=== PATIENT | male | born 1935 | race Caucasian/White ===

== ENCOUNTER → 2019-04-27 | Outpatient (CLI) | payer MEDICARE ==
--- NOTE | 2019-04-27 13:13 | Diagnostic Imaging Report ---
INDICATION: Left-sided arm and chest weakness x1 week. TECHNIQUE: Multiple contiguous axial images were obtained through the brain without the use of intravenous contrast. Auto Exposure Controls were utilized during the CT exam to meet ALARA standards for radiation dose reduction. COMPARISON: There is no prior study for comparison. FINDINGS: There are no extra-axial fluid collections. No intracranial hemorrhage. No intracranial mass or mass effect. No midline shift. The ventricles are normal in size and position. There is a small lacunar infarct in the right thalamus of indeterminate age. There are no other focal parenchymal abnormalities in the brain. Calvarial windows appear unremarkable. IMPRESSION: No acute hemorrhage or mass effect. 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 Consider MRI if clinically warranted. Dictated by: Dictated on workstation # [id number]
[2019-04-27 14:03] LABS: ALANINE AMINOTRANSFERASE 24 U/L (0-55); ALBUMIN 4.1 GM/DL (3.2-4.5); ALKALINE PHOSPHATASE 75 U/L (40-136); BILIRUBIN,TOTAL 0.5 MG/DL (0.1-1.0); BUN/CREATININE RATIO 16; CALCIUM 9.2 MG/DL (8.5-10.1); CARBON DIOXIDE 23 MMOL/L (21-32); CHLORIDE 108 MMOL/L (98-107); CREATININE SERUM 0.93 MG/DL (0.60-1.30); GFR ESTIMATED > 60; GLUCOSE 132 MG/DL (70-105); POTASSIUM 4.1 MMOL/L (3.6-5.0); SODIUM 143 MMOL/L (135-145); TOTAL PROTEIN 6.8 GM/DL (6.4-8.2)
== END ==
LOC: RAD 12:51
PROVIDERS: ATTEND Pediatrics
DX: I63.81 Other cerebral infarction due to occlusion or stenosis of small artery (principal); E11.9 Type 2 diabetes mellitus without complications
CPT/HCPCS: 36415; 70450; 80053; 83036; 83874; 84484

== ENCOUNTER → 2019-05-08 | Outpatient (CLI) | payer MEDICARE, BC ==
[~2019-05-08] MED LIST: GADOBUTROL 10 MMOL/10 ML (GADAVIST) VIAL IV ONE
--- NOTE | 2019-05-08 10:20 | Diagnostic Imaging Report ---
PROCEDURE: MR imaging of the brain with and without contrast. TECHNIQUE: Multiplanar, multisequence MR imaging of the brain was performed with and without contrast. INDICATION: Bilateral hand numbness. COMPARISON: Correlation is made with head CT from 04/27/2019. FINDINGS: The ventricles and sulci are appropriate for the patient's age. Mild periventricular white matter changes are noted consistent with senescent change. There is no sulcal effacement or midline shift. No diffusion restriction is identified to suggest acute ischemia. The normal expected flow voids within the carotid siphons are seen. No acute intra-axial or extra-axial hemorrhage is detected. No abnormal enhancement following contrast administration is identified. The corpus callosum is unremarkable. The sella and parasellar structures are unremarkable. IMPRESSION: Senescent changes. No acute intracranial process is detected. Dictated by: Dictated on workstation # [id number]
== END ==
LOC: RAD 08:55
PROVIDERS: ATTEND Pediatrics
DX: R29.818 Other symptoms and signs involving the nervous system (principal); R93.0 Abnormal findings on diagnostic imaging of skull and head, not elsewhere classified; R54 Age-related physical debility; R20.0 Anesthesia of skin
CPT/HCPCS: 70553

== ENCOUNTER → 2019-07-01 | Outpatient (CLI) | payer OTHER ==
--- NOTE | 2019-07-01 13:15 | Diagnostic Imaging Report ---
INDICATION: Chest wall pain. TECHNIQUE: Two view chest 12:03 p.m. CORRELATION STUDY: None. FINDINGS: Heart size is mildly enlarged. Tortuous course of the thoracic aorta. Vasculature overall is within normal limits. The lungs are clear with no consolidating infiltrate. There is no significant pleural effusion or pneumothorax. Degenerative changes of the thoracic spine. There are multifocal bridging osteophytes present. Various degrees of disc space narrowing. IMPRESSION: 1. Negative for acute abnormality of the chest. Cardiac enlargement without failure. Dictated by: Dictated on workstation # [id number]
--- NOTE | 2019-07-01 13:19 | Diagnostic Imaging Report ---
INDICATION: Left shoulder pain, no known injury. TECHNIQUE: Three views of the left shoulder. CORRELATION STUDY: None. FINDINGS: There is no acute fracture or dislocation. There is mild osteophyte formation about the inferior aspect of the bony glenoid. Glenohumeral joint is otherwise maintained. There is also hypertrophic spurring about the acromioclavicular joint. There does appear to be perhaps mild soft tissue prominence over the left shoulder, nonspecific. Underlying effusion would be difficult to exclude. IMPRESSION: 1. Negative for acute bony abnormality about the shoulder. Mild to moderately advanced degenerative changes about the left shoulder. Underlying joint effusion would be difficult to exclude. Dictated by: Dictated on workstation # [id number]
== END ==
LOC: RAD FS 11:39
DX: I51.7 Cardiomegaly (principal); M19.012 Primary osteoarthritis, left shoulder
CPT/HCPCS: 71046; 73030

== ENCOUNTER 2020-02-18 12:08 | Observation (INO) | payer MEDICARE ==
[~2020-02-18] VITALS: Ht 182 cm; Wt 96.6 kg
--- NOTE | 2020-02-18 12:29 | ED Cardiac General ---
History of Present Illness General Stated Complaint: LOW BP; LOW HR Source: patient Exam Limitations: no limitations History of Present Illness Date Seen by Provider: Feb 18, 2020 Time Seen by Provider: 12:20 Initial Comments 84-year-old male presents ambulatory to the ER with complaint of feeling weak for the last 1 week. Denies any chest pain, but is having shortness of air with light exertion. Denies history of heart or lung problems. Denies recent illness, fever or chills. Denies weight loss or loss of appetite. Denies any abdominal pain or swelling of the extremities. Allergies and Home Medications Allergies Coded Allergies: No Known Drug Allergies (Unverified , 05/08/19) Home Medications Lisinopril 10 Mg Tablet, 10 MG PO DAILY, (Reported) Patient Home Medication List Home Medication List Reviewed: Yes Review of Systems Review of Systems Constitutional: No chills, No diaphoresis, No fever; weakness EENTM: No Symptoms Reported Respiratory: Denies Shortness of Air; SOA With Exertion Cardiovascular: Denies Chest Pain, Denies Edema; Lightheadedness; Denies Palpitations, Denies Syncope Gastrointestinal: Denies Abdominal Pain, Denies Nausea, Denies Poor Appetite Musculoskeletal: No back pain, No joint pain Skin: No change in color, No change in hair/nails Psychiatric/Neurological: Denies Headache, Denies Numbness, Denies Paresthesia; Weakness Past Qmyvnwg-Dlkxja-Bfmztu Hx Past Med/Social Hx: Reviewed Nursing Past Med/Soc Hx Patient Social History Recent Foreign Travel: No Contact w/Someone Who Travel: No Physical Exam Vital Signs Vital Signs - First Documented 02/18/20 12:10 Temp 36.1 Pulse 38 Resp 16 B/P (MAP) 218/89 (132) Pulse Ox 95 O2 Delivery Room Air Capillary Refill : Height, Weight, BMI Height: '" Weight: lbs. oz. kg; BMI Method: General Appearance: No Apparent Distress, WD/WN HEENT: TMs Normal, Normal ENT Inspection Neck: Full Range of Motion, Non Tender, Supple Respiratory: Lungs Clear, Normal Breath Sounds, No Accessory Muscle Use, No Respiratory Distress Cardiovascular: No Edema, No Gallop, No JVD, No Murmur, Normal Peripheral Pulses, Bradycardia Gastrointestinal: Normal Bowel Sounds, Non Tender Extremity: Normal Capillary Refill, Normal Inspection, Normal Range of Motion, Non Tender, No Calf Tenderness Neurologic/Psychiatric: Alert, Oriented x3, No Motor/Sensory Deficits, Normal Mood/Affect Skin: Normal Color, Warm/Dry Progress/Results/Core Measures Results/Orders Lab Results Laboratory Tests Test 02/18/20 12:25 Range/Units White Blood Count 8.3 4.3-11.0 10^3/uL Red Blood Count 4.84 4.35-5.85 10^6/uL Hemoglobin 15.3 13.3-17.7 G/DL Hematocrit 45 40-54 % Mean Corpuscular Volume 92 80-99 FL Mean Corpuscular Hemoglobin 32 25-34 PG Mean Corpuscular Hemoglobin Concent 34 32-36 G/DL Red Cell Distribution Width 14.3 10.0-14.5 % Platelet Count 180 130-400 10^3/uL Mean Platelet Volume 10.9 H 7.4-10.4 FL Immature Granulocyte % (Auto) 0 % Neutrophils (%) (Auto) 67 42-75 % Lymphocytes (%) (Auto) 20 12-44 % Monocytes (%) (Auto) 9 0-12 % Eosinophils (%) (Auto) 3 0-10 % Basophils (%) (Auto) 1 0-10 % Neutrophils # (Auto) 5.6 1.8-7.8 X 10^3 Lymphocytes # (Auto) 1.7 1.0-4.0 X 10^3 Monocytes # (Auto) 0.8 0.0-1.0 X 10^3 Eosinophils # (Auto) 0.3 0.0-0.3 10^3/uL Basophils # (Auto) 0.1 0.0-0.1 10^3/uL Immature Granulocyte # (Auto) 0.0 0.0-0.1 10^3/uL Sodium Level 142 135-145 MMOL/L Potassium Level 4.2 3.6-5.0 MMOL/L Chloride Level 110 H 98-107 MMOL/L Carbon Dioxide Level 22 21-32 MMOL/L Anion Gap 10 5-14 MMOL/L Blood Urea Nitrogen 20 H 7-18 MG/DL Creatinine 0.97 0.60-1.30 MG/DL Estimat Glomerular Filtration Rate > 60 BUN/Creatinine Ratio 21 Glucose Level 150 H 70-105 MG/DL Calcium Level 8.9 8.5-10.1 MG/DL Corrected Calcium 9.0 8.5-10.1 MG/DL Total Bilirubin 0.8 0.1-1.0 MG/DL Aspartate Amino Transf (AST/SGOT) 41 H 5-34 U/L Alanine Aminotransferase (ALT/SGPT) 55 0-55 U/L Alkaline Phosphatase 79 40-136 U/L Troponin I < 0.30 <0.30 NG/ML Total Protein 6.1 L 6.4-8.2 GM/DL Albumin 3.9 3.2-4.5 GM/DL My Orders Orders - KANU GALICIA DO Cbc With Automated Diff (02/18/20 12:19) Comprehensive Metabolic Panel (02/18/20 12:19) Troponin I Fs (02/18/20 12:19) Ed Iv/Invasive Line Start (02/18/20 12:19) Ekg Tracing (02/18/20 12:19) Chest 1 View Ap/Pa Only (02/18/20 12:19) Vital Signs/I&O 02/18/20 12:10 Temp 36.1 Pulse 38 Resp 16 B/P (MAP) 218/89 (132) Pulse Ox 95 O2 Delivery Room Air Progress Progress Note : Progress Note Heart rate remained stable in the mid to upper 30s for his entire ER stay. Patient remained asymptomatic at rest. Denied any chest pain or shortness of air. Normal labs including Troponin. Only Rx medication is Lisinopril 10mg. He does take an 81mg ASA daily. No significant PMHX, active and functional 84 y/o male. 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 Initial ECG Impression Time: 12:30 Initial ECG Rate: 39 Initial ECG Rhythm: S.Jose Initial ECG Impression: Sinus Bradycardia, 2nd Degree AV Block Initial ECG Comparisson: No Previous ECG Available Departure Communication (Admissions) Time/Spoke to Admitting Phy: 12:[address] Stewart who accepts for transfer to [facility] Time/Spoke to Consulting Phy: 12:[address] Henry who advised admitting to Hospitalist and he will consult on pt on arrival. Impression Primary Impression: Bradycardia Disposition: ADMITTED INPATIENT Condition: Stable Admissions Decision to Admit Reason: Admit from ER (General) Decision to Admit/Date: Feb 18, 2020 Time/Decision to Admit Time: 12:27 Departure-Patient Inst. Referrals: CANDE PARRA MD (PCP/Family) Primary Care Physician KANU GALICIA DO Feb 18, 2020 12:29
--- NOTE | 2020-02-18 12:30 | NUR ---
PT'S UPDATED IN THE WAITING ROOM. STATES HER DAUGHTER WILL BE HERE IN ABOUT AND HOUR.
[2020-02-18] MEDS ORDERED: LISI10TA2 PO (12:34)
[2020-02-18 12:36] LABS: BASOPHILS # (AUTO) 0.1 10^3/uL (0.0-0.1); BASOPHILS % (AUTO) 1 % (0-10); EOSINOPHILS # (AUTO) 0.3 10^3/uL (0.0-0.3); EOSINOPHILS % (AUTO) 3 % (0-10); HEMATOCRIT 45 % (40-54); HEMOGLOBIN 15.3 G/DL (13.3-17.7); LYMPHOCYTES # (AUTO) 1.7 X 10^3 (1.0-4.0); LYMPHOCYTES % (AUTO) 20 % (12-44); MEAN CORPUSCULAR HEMOGLOBIN 32 PG (25-34); MEAN CORPUSCULAR HGB CONC 34 G/DL (32-36); MEAN CORPUSCULAR VOLUME 92 FL (80-99); MEAN PLATELET VOLUME 10.9 FL (7.4-10.4); MONOCYTES # (AUTO) 0.8 X 10^3 (0.0-1.0); MONOCYTES % (AUTO) 9 % (0-12); NEUTROPHILS # (AUTO) 5.6 X 10^3 (1.8-7.8); NEUTROPHILS % (AUTO) 67 % (42-75); PLATELET COUNT 180 10^3/uL (130-400); WHITE BLOOD COUNT 8.3 10^3/uL (4.3-11.0)
--- NOTE | 2020-02-18 12:41 | NUR ---
DICTAPHONE OPERATOR CONTACTED FOR A BED
--- NOTE | 2020-02-18 12:46 | NUR ---
DR TALKING TO AT THIS TIME.
[2020-02-18 12:51] LABS: ALANINE AMINOTRANSFERASE 55 U/L (0-55); ALBUMIN 3.9 GM/DL (3.2-4.5); ALKALINE PHOSPHATASE 79 U/L (40-136); BILIRUBIN,TOTAL 0.8 MG/DL (0.1-1.0); BUN/CREATININE RATIO 21; CALCIUM 8.9 MG/DL (8.5-10.1); CARBON DIOXIDE 22 MMOL/L (21-32); CHLORIDE 110 MMOL/L (98-107); CREATININE SERUM 0.97 MG/DL (0.60-1.30); GFR ESTIMATED > 60; GLUCOSE 150 MG/DL (70-105); POTASSIUM 4.2 MMOL/L (3.6-5.0); SODIUM 142 MMOL/L (135-145); TOTAL PROTEIN 6.1 GM/DL (6.4-8.2)
--- NOTE | 2020-02-18 12:51 | Diagnostic Imaging Report ---
INDICATION: Bradycardia and hypotension. TIME OF EXAM: 12:34 p.m. COMPARISON: Correlation is made with prior chest from 07/01/2019. FINDINGS: Heart size is normal. There appear to be patchy bibasilar infiltrates present. There may be trace bilateral effusions as well. Mid and upper lung paiz are clear. There is no pneumothorax. IMPRESSION: Patchy bibasilar pulmonary infiltrates and trace bilateral pleural effusions. Dictated by: Dictated on workstation # [id number]
--- NOTE | 2020-02-18 14:19 | History & Physical-Hospitalist ---
History of Present Illness HPI/Chief Complaint Pt is an 84yoCm with a PMH of HTN who presented to the ER due to bradycardia. He states for the past two weeks he's been more out of breath and is very winded when he comes up his stairs from the basement. He tried to check his BP and it was reading as an error but it read his pulse at 30. [facility] He had sinus bradycardia in the 30s there as well. He has not been on any rate lower medication and only takes lisinopril. Otherwise he says he's a diet controlled diabetic and he believes his last a1c was 7.0. He has not other complaints. He denies any fever, chills, sick contacts. Source: patient Date Seen 02/18/20 Time Seen by a Provider: 15:30 Attending Physician Pauline Stewart MD PCP Teja Solorio MD Referring Physician Date of Admission Feb 18, 2020 at 14:06 Home Medications & Allergies Home Medications Reviewed patient Home Medication Reconciliation performed by pharmacy medication reconciliations biological science technician and/or nursing. Patients Allergies have been reviewed. Allergies Allergies Coded Allergies No Known Drug Allergies (Unverified05/08/19) Past Ljkosdr-Bycemt-Blptya Hx Past Med/Social Hx: Reviewed Nursing Past Med/Soc Hx Patient Social History Alcohol Use: Denies Use Recreational Drug Use: No Smoking Status: Never a Smoker Recent Foreign Travel: No Contact w/other who traveled: No Recent Infectious Disease Expo: No Immunizations Up To Date Date of Pneumonia Vaccine: Feb 17, 2019 Date of Influenza Vaccine: Jan 28, 2020 Seasonal Allergies Seasonal Allergies: No Past Medical History Surgeries: Abdominal Cardiac: Hypertension Family History Reviewed Nursing Family Hx No Pertinent Family Hx Review of Systems Constitutional: No chills, No fever; malaise Respiratory: No cough; dyspnea on exertion, short of breath Cardiovascular: see HPI; No chest pain, No edema, No Hx of Intervention, No palpitations Gastrointestinal: no symptoms reported Musculoskeletal: no symptoms reported Skin: no symptoms reported Psychiatric/Neurological: No Symptoms Reported Physical Exam Physical Exam Vital Signs Vital Signs - First Documented 02/18/20 12:10 Temp 36.1 Pulse 38 Resp 16 B/P (MAP) 218/89 (132) Pulse Ox 95 O2 Delivery Room Air Capillary Refill : Less Than 3 Seconds Height, Weight, BMI Height: '" Weight: lbs. oz. kg; 29.00 BMI Method: General Appearance: No Apparent Distress, WD/WN HEENT: PERRL/EOMI, Moist Mucous Membranes; No Scleral Icterus (L), No Scleral Icterus (R) Neck: Normal Inspection, Supple Respiratory: Lungs Clear, No Accessory Muscle Use, No Respiratory Distress Cardiovascular: No Edema, No JVD, No Murmur, Bradycardia Gastrointestinal: Normal Bowel Sounds, Non Tender, Soft Extremity: Normal Capillary Refill, No Calf Tenderness, No Pedal Edema Neurologic/Psychiatric: Alert, Oriented x3, Normal Mood/Affect Skin: Normal Color, Warm/Dry Results Results/Procedures Labs Laboratory Tests 02/19/20 02:53 Patient resulted labs reviewed. Imaging: Reviewed Imaging Report [facility] [place], [place] NAME: MAIA RIVER [employer] REC#: [id number] PT STATUS: REG ER : 1935 PHYSICIAN: KANU GALICIA DO ADMIT DATE: 02/18/20/ER FS Draft Date of Exam:02/18/20 CHEST 1 VIEW AP/PA ONLY INDICATION: Bradycardia and hypotension. TIME OF EXAM: 12:34 p.m. COMPARISON: Correlation is made with prior chest from 07/01/2019. FINDINGS: Heart size is normal. There appear to be patchy bibasilar infiltrates present. There may be trace bilateral effusions as well. Mid and upper lung paiz are clear. There is no pneumothorax. IMPRESSION: Patchy bibasilar pulmonary infiltrates and trace bilateral pleural effusions. 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
[2020-02-18] MEDS ORDERED: MIDAZOLAM 5 MG/5 ML (VERSED) VIAL ONE (14:36)
[2020-02-18] MEDS ORDERED: ceFAZolin INJECTION 1,000 MG ONE ×2 (14:36→22:11)
[2020-02-18] MEDS ORDERED: LIDOCAINE 1% INJ 20 ML 20 ML VIAL ONE (14:36)
[2020-02-18] MEDS ORDERED: fentaNYL INJECTION 100 MCG/2 ML AMP ONE (14:36)
[2020-02-18] MEDS ORDERED: HEParin (CATH LAB) 1,000 ML IV ONE (14:36)
[2020-02-18] MEDS ORDERED: NS IV 1000 ML 1,000 ML ONE (14:36)
[2020-02-18] MEDS ORDERED: ASPI-999 PO (15:28)
[2020-02-18] MEDS ORDERED: BACITRACIN INJECTION 50,000 UNIT, SODIUM CHLORIDE 0.9% IRRIGATIO 500 ML IR ONE ×2 (15:45)
--- NOTE | 2020-02-18 15:52 | NUR ---
1545 PT TO [employer] SECUR[employer] ARCHITECT VIA BED ACCOMPANIED BY [employer] SECURITY ARCHITECT STAFF.
--- NOTE | 2020-02-18 16:04 | Cardiac Procedure Note-CS/ASA ---
Pre-Procedure Note Pre-Op Procedure Note H&P Reviewed The H&P was reviewed, patient examined and no changes noted. Date H&P Reviewed: Feb 18, 2020 Time H&P Reviewed: 16:04 Conscious Sedation Pre-Proced Time 16:04 ASA Score 3 For ASA 3 and 4: Consider anesthesia and medical clearance. Also, for patients with a history of failed moderate sedation consider anesthesia. Airway Lungs Heart ASA score ASA 1: a normal healthy patient ASA 2: a patient with a mild systemic disease (mid diabetes, controlled hypertension, obesity x ASA 3: a patient with a severe systemic disease that limits activity (angina, COPD, prior Myocardial infarction) ASA 4: a patient with an incapacitating disease that is a constant threat to life (CHF, renal failure) ASA 5: a moribund patient not expected to survive 24 hrs. (ruptured aneurysm) ASA 6: a declared brain- patient whose organs are being harvested. For emergent operations, add the letter E after the classification Mallampati Classification Grade 3 Sedation Plan Analgesia, Amnesia, Plan communicated to team members, Discussed options with patient/fam, Discussed risks with patient/fam The patient is an appropriate candidate to undergo the planned procedure, sedation, and anesthesia. The patient immediately re-assessed prior to indication. OWEN BOYER MD Feb 18, 2020 16:04
--- NOTE | 2020-02-18 16:04 | Consultation-Cardiology ---
HPI-Cardiology Cardiology Consultation Date of Consultation 02/18/20 Date of Admission Time Seen by Provider: 15:00 Indication: bradycardia HPI 84 years old gentleman With history of hypertension started on lisinopril recently. Has been complaining of fatigue and loss of energy for the last week to 2 weeks. No syncope was reported but has been playing of feeling tired and having no energy had elevated blood pressure. Came into the emergency room and noted to be in complete heart block with a heart rate 30-35. Denied any chest pain. No shortness of breath. No syncope. Home Medications & Allergies Allergies: Coded Allergies: No Known Drug Allergies (Unverified , 05/08/19) Home Medication List Reviewed: Yes MME-Idbbbw-Nhcxjw Hx Patient Social History Marital Status: Alcohol Use: Denies Use Recreational Drug Use: No Smoking Status: Never a Smoker Recent Foreign Travel: No Recent Infectious Disease Expo: No Immunizations Up To Date Date of Pneumonia Vaccine: Feb 17, 2019 Date of Influenza Vaccine: Jan 28, 2020 Past Medical History Hypertension Family Medical History Significant Family History: No Pertinent Family Hx Family Medical Hx Family history of atrial fibrillation and pacemaker Review of Systems-General Review of Systems Constitutional: No chills, No fever; malaise, weakness EENTM: see HPI, no symptoms reported Respiratory: see HPI; No cough; dyspnea on exertion, short of breath Cardiovascular: see HPI; No chest pain, No edema, No Hx of Intervention, No palpitations Gastrointestinal: no symptoms reported, see HPI Genitourinary: no symptoms reported, see HPI Musculoskeletal: no symptoms reported, see HPI Skin: no symptoms reported, see HPI Psychiatric/Neurological: No Symptoms Reported, See HPI Reviewed Test Results Reviewed Test Results Lab Laboratory Tests Test 02/18/20 12:25 Range/Units White Blood Count 8.3 4.3-11.0 10^3/uL Red Blood Count 4.84 4.35-5.85 10^6/uL Hemoglobin 15.3 13.3-17.7 G/DL Hematocrit 45 40-54 % Mean Corpuscular Volume 92 80-99 FL Mean Corpuscular Hemoglobin 32 25-34 PG Mean Corpuscular Hemoglobin Concent 34 32-36 G/DL Red Cell Distribution Width 14.3 10.0-14.5 % Platelet Count 180 130-400 10^3/uL Mean Platelet Volume 10.9 H 7.4-10.4 FL Immature Granulocyte % (Auto) 0 % Neutrophils (%) (Auto) 67 42-75 % Lymphocytes (%) (Auto) 20 12-44 % Monocytes (%) (Auto) 9 0-12 % Eosinophils (%) (Auto) 3 0-10 % Basophils (%) (Auto) 1 0-10 % Neutrophils # (Auto) 5.6 1.8-7.8 X 10^3 Lymphocytes # (Auto) 1.7 1.0-4.0 X 10^3 Monocytes # (Auto) 0.8 0.0-1.0 X 10^3 Eosinophils # (Auto) 0.3 0.0-0.3 10^3/uL Basophils # (Auto) 0.1 0.0-0.1 10^3/uL Immature Granulocyte # (Auto) 0.0 0.0-0.1 10^3/uL Sodium Level 142 135-145 MMOL/L Potassium Level 4.2 3.6-5.0 MMOL/L Chloride Level 110 H 98-107 MMOL/L Carbon Dioxide Level 22 21-32 MMOL/L Anion Gap 10 5-14 MMOL/L Blood Urea Nitrogen 20 H 7-18 MG/DL Creatinine 0.97 0.60-1.30 MG/DL Estimat Glomerular Filtration Rate > 60 BUN/Creatinine Ratio 21 Glucose Level 150 H 70-105 MG/DL Calcium Level 8.9 8.5-10.1 MG/DL Corrected Calcium 9.0 8.5-10.1 MG/DL Total Bilirubin 0.8 0.1-1.0 MG/DL Aspartate Amino Transf (AST/SGOT) 41 H 5-34 U/L Alanine Aminotransferase (ALT/SGPT) 55 0-55 U/L Alkaline Phosphatase 79 40-136 U/L Troponin I < 0.30 <0.30 NG/ML Total Protein 6.1 L 6.4-8.2 GM/DL Albumin 3.9 3.2-4.5 GM/DL Physical Exam Physical Exam Vital Signs Vital Signs - First Documented 02/18/20 12:10 Temp 36.1 Pulse 38 Resp 16 B/P (MAP) 218/89 (132) Pulse Ox 95 O2 Delivery Room Air Capillary Refill : Less Than 3 Seconds Height, Weight, BMI Height: '" Weight: lbs. oz. kg; 29.00 BMI Method: General Appearance: No Apparent Distress, WD/WN HEENT: PERRL/EOMI, Moist Mucous Membranes; No Scleral Icterus (L), No Scleral Icterus (R) Neck: Normal Inspection, Supple Respiratory: Lungs Clear, No Accessory Muscle Use, No Respiratory Distress Cardiovascular: No Edema, No JVD, No Murmur, Bradycardia Gastrointestinal: Normal Bowel Sounds, Non Tender, Soft Extremity: Normal Capillary Refill, No Calf Tenderness, No Pedal Edema Neurologic/Psychiatric: Alert, Oriented x3, Normal Mood/Affect Skin: Normal Color, Warm/Dry A/P-Cardiology Admission Diagnosis Complete heart block Bradycardia Fatigue Assessment/Plan Complete heart block, 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 No reversible causes for bradycardia were identified. Patient will need a permanent pacemaker, dual-chamber pacemaker. Hypertension, has been on lisinopril. I will restart medication after pacemaker implantation Generalized fatigue and loss of energy. Probably secondary to bradycardia Questionable underlying coronary artery disease as a cause for his complete heart block versus progressive degenerative disease. Will consider stress test in the future Clinical Quality Measures DVT/VTE Risk/Contraindication: Risk Factor Score Per Nursin RFS Level Per Nursing on Admit: 2=Moderate OWEN BOYER MD Feb 18, 2020 16:04
[2020-02-18] MEDS ORDERED: NEO/POLY/BAC (NEOSPORIN) OINT 15 GM TUBE ONE (17:09)
[2020-02-18] MEDS ORDERED: NS IV 1000 ML 1,000 ML IV SCH (17:12)
[2020-02-18] MEDS ORDERED: PATIENT MAY USE OWN MEDS, ALL PO SCH (17:15)
--- NOTE | 2020-02-18 17:18 | Permanent Pacemaker Implant ---
Dual Chamber Pacemaker Implant PROCEDURE PHYSICIAN: Owen Boyer DUAL CHAMBER PACEMAKER IMPLANTATION: DATE OF PROCEDURE: 02/18/20 INDICATION: Severe bradycardia, complete heart block PREOPERATIVE DIAGNOSIS: Complete heart block POSTOPERATIVE DIAGNOSIS: Complete heart block HISTORY: Dual-chamber permanent pacemaker was recommended. PROCEDURE PERFORMED: 1. Dual-chamber permanent pacemaker implantation. 2. Fluoroscopy. 3. Central venous access. ANESTHESIA: Local anesthesia, conscious sedation. COMPLICATIONS: None. ESTIMATED BLOOD LOSS:20 mL. SPECIMENS: None. ORAL ANTICOAGULATION: None. PROCEDURE DETAILS: The patient is a 84 male and after all of the patients questions were answered, the patient was brought to the EP Lab. The patient's left chest was prepped and draped in sterile fashion. A 2 inch horizontal incision was made 1 cm below the clavicle and dissection carried down to the pectoralis fascia. Using the modified Seldinger technique and under fluoroscopy guidance, the anterior aspect of the left axillary vein was accessed 2 times. The J wires were secured to the drapes with a mosquito clamp. A 7-Irish sheath was introduced over one of the J-wires. The RV lead was then inserted. The RV lead was directed across the tricuspid valve to the apical septal portion of the right ventricle. The position was checked in TRINIDADIAN and MODI views. The screw was deployed and the lead connected to the recreation programmer. Close sensing and pacing thresholds were ob tained. Diaphragmatic pacing was ruled out. The lead was secured with 2-0 silk ties to the underlying muscle and fascia. Next, a 7-Irish sheath was introduced through the remaining J-wire. An atrial lead was then introduced and guided to the level of the right appendage. The screw was deployed and the lead was connected to the interrogator. Good sensing and pacing thresholds were obtained. Diaphragmatic pacing was ruled out. The leads were secured with 2-0 silk ties to the underlying muscle and fascia. The leads were connected to the device in a hermetic fashion. The device and leads were placed in the pocket. Aggressive irrigation with saline solution was done. The device was secured to the underlying muscle and fascia with a 2-0 silk tie. interrogation of the device revealed good integrity of all the leads and good connections. The wound was then closed using 2 layers. The first layer was interrupted 2-0 absorbable Vicryl suture. The last layer was a single subcuticular layer with 4- 0 Vicryl suture. Half inch Steri-Strips and a small dressing were then applied to the wound. The patient tolerated the procedure well and was returned to the recovery room in stable condition with stable vital signs. DEVICE INFORMATION: SARITA CARRINGTON [facility] Serial # [id number] RA LEAD: [id number] RV LEAD: [id number] PER-OPERATIVE DEVICE INTERROGATION: Good sensing and capture activity IMMEDIATE POSTOPERATIVE DEVICE INTERROGATION: Atrial lead, impedance 437, P-wave 1.5 mV, threshold 0.6 mV Ventricular lead impedance 576, R wave 9 mV, threshold 0.6 mV PLAN: The patient transferred to the ICU. We will continue with two more doses of IV antibiotics. We will check a chest x-ray and interrogate the device in the morning. The patient will continue on oral antibiotics for 5 days. CONCLUSION: Successful implantation of dual chamber pacemaker OWEN BOYER MD Feb 18, 2020 17:18
--- NOTE | 2020-02-18 17:40 | NUR ---
PATIENT BACK TO ROOM AT THIS TIME FROM VALIDATION CONSULTANT. PACEMAKER TO LEFT CHEST WALL DRY AND INTACT, SLING APPLIED TO LEFT ARM, PATIENT EDUCATED ABOUT SLING, PATIENT VERBALIZES UNDERSTANDING. CALL LIGHT AND PERSONAL ITEMS IN REACH OF PATIENT. PATIENT DENIES ANY PAIN AT THIS TIME, WILL CONTINUE TO MONITOR.
--- NOTE | 2020-02-18 17:55 | Diagnostic Imaging Report ---
INDICATION: Arrhythmia, pacemaker placement. EXAMINATION: Portable chest at 5:32 p.m. FINDINGS: There is a left subclavian dual-chamber pacemaker with leads projecting over the right atrium and right ventricle. There is no effusion or pneumothorax. There is mild pulmonary vascular congestion. IMPRESSION: Mild pulmonary vascular congestion. Chest otherwise unremarkable. Dictated by: Dictated on workstation # [id number]
--- NOTE | 2020-02-18 18:50 | NUR ---
CALL PLACED TO DR BOYER FOR PATIENT BP 180/116, SEE NEW ORDERS
[2020-02-18] MEDS ORDERED: meTOprolol 5 MG/5 ML (LOPRESSOR) VIAL IV ONE (19:00)
[2020-02-18] MEDS ORDERED: cloNIDine 0.1 MG (CATAPRES) TAB ONE (21:40)
--- NOTE | 2020-02-18 21:40 | NUR ---
NIBP 199/119 DR BOYER NOTIFIED. NEW ORDERS RECEIVED
[2020-02-18] MEDS ORDERED: cloNIDine 0.1 MG (CATAPRES) TAB PO ONE ×2 (21:45→23:00)
[2020-02-18] MEDS ORDERED: WATER (STERILE) FOR INJECTION 10 ML ONE (22:11)
[2020-02-18] MEDS: ceFAZolin INJECTION 1,000 MG in WATER (STERILE) FOR INJECTION 10 ML IV SCH (22:16)
--- NOTE | 2020-02-18 22:52 | NUR ---
NIBP 204/110 DR BOYER NOTIFIED NEW ORDERS RECEIVED
--- NOTE | 2020-02-19 00:10 | NUR ---
NIBP RIGHT ARM 198/115 LEFT ARM 181/102 DR BOYER NOTIFIED. NEW ORDERS RECEIVED
[2020-02-19] MEDS ORDERED: NITRO DRIP 25000 MCG/D5W 250 ML IV ONE (00:12)
[2020-02-19] MEDS: NITRO DRIP 25000 MCG/D5W 250 ML IV SCH ×2 (00:20→01:14)
[2020-02-19] MEDS ORDERED: CEFEPIME 1 GM/10 ML (MAXIPIME) VIAL ONE (03:27)
[2020-02-19] MEDS ORDERED: WATER (STERILE) FOR INJECTION 0 ML ONE (03:27)
[2020-02-19] MEDS ORDERED: WATER (STERILE) FOR INJECTION 10 ML ONE (03:29)
[2020-02-19] MEDS ORDERED: ceFAZolin INJECTION 1,000 MG ONE (03:29)
[2020-02-19 03:43] LABS: HEMOGLOBIN 12.5 g/dL (13.3-17.7); MEAN PLATELET VOLUME 11.3 fL (9.0-12.2); WHITE BLOOD COUNT 7.3 10^3/uL (4.3-11.0)
[2020-02-19 03:50] LABS: ALBUMIN 2.9 GM/DL (3.2-4.5); CHLORIDE 111 MMOL/L (98-107); POTASSIUM 3.7 MMOL/L (3.6-5.0); SODIUM 141 MMOL/L (135-145)
[2020-02-19 03:52] LABS: CALCIUM 7.8 MG/DL (8.5-10.1)
[2020-02-19 03:53] LABS: GLUCOSE 132 MG/DL (70-105); TOTAL PROTEIN 4.8 GM/DL (6.4-8.2)
[2020-02-19 03:54] LABS: CARBON DIOXIDE 21 MMOL/L (21-32)
[2020-02-19 03:55] LABS: BILIRUBIN,TOTAL 0.8 MG/DL (0.1-1.0)
[2020-02-19 03:56] LABS: ALKALINE PHOSPHATASE 60 U/L (40-136); CREATININE SERUM 0.82 MG/DL (0.60-1.30); GFR ESTIMATED > 60
[2020-02-19 03:57] LABS: BUN/CREATININE RATIO 23
[2020-02-19 03:59] LABS: ALANINE AMINOTRANSFERASE 38 U/L (0-55)
[2020-02-19] MEDS ORDERED: NS IV 1000 ML 1,000 ML ONE (04:29)
--- NOTE | 2020-02-19 04:43 | NUR ---
MAXIPIME 1 GRAM AND STERILE WATER RETURNED TO [facility]
[2020-02-19] MEDS: ceFAZolin INJECTION 1,000 MG in WATER (STERILE) FOR INJECTION 10 ML IV SCH (05:31)
[2020-02-19] MEDS ORDERED: POTASSIUM CL 10MEQ/50ML IVPB 50 ML IV SCH (06:00)
[2020-02-19] MEDS ORDERED: KCL 20 MEQ TAB (K-DUR) PO SCH (06:00)
[2020-02-19] MEDS ORDERED: MAGNESIUM 1 GM/100 ML IVPB 100 ML IV SCH (06:00)
--- NOTE | 2020-02-19 08:24 | Discharge Summary ---
Diagnosis/Chief Complaint Date of Admission Feb 18, 2020 at 14:06 Date of Discharge Discharge Date: Feb 19, 2020 Admission Diagnosis Bradycardia Primary Care Teja Solorio MD Discharge Summary Procedures/Consulations Dr Henry- Cardiology Discharge Physical Exam Allergies: Coded Allergies: No Known Drug Allergies (Unverified , 05/08/19) Vitals & I&Os Vital Signs Date Time Temp Pulse Resp B/P (MAP) Pulse Ox O2 Delivery O2 Flow Rate FiO2 02/19/20 14:45 36.8 67 19 176/100 92 Room Air General Appearance: No Apparent Distress Respiratory: Lungs Clear, No Respiratory Distress Cardiovascular: Regular Rate, Rhythm, No Murmur Neurologic/Psychiatric: Alert, Oriented x3 Hospital Course Pt is an 84yoCM who was admitted due to symptomatic sinus bradycardia. He underwent pacemaker placement and he did very well. He was asymptomatic after this. He had an otherwise uneventful hospital stay and was discharged home in stable condition to follow up this hospital stay. Labs (last 24 hrs) Microbiology 02/18/20 MRSA Screen - Final, Complete MRSA not isolated Patient resulted labs reviewed. Pending Labs Imaging: Reviewed Imaging Report Discussion & Recommendations Discharge Planning: >30 minutes discharge planning Discharge Home Medications: Active Scripts Active Cefuroxime (Cefuroxime Axetil) 500 Mg Tablet 500 Mg PO BID Lisinopril 20 Mg Tablet 20 Mg PO DAILY Metoprolol Succinate 50 Mg Tab.er.24h 50 Mg PO DAILY Amlodipine Besylate 5 Mg Tablet 5 Mg PO DAILY Reported Aspirin 81 Mg Tab.chew 81 Mg PO DAILY Instructions to patient/family Please see electronic discharge instructions given to patient. Clinical Quality Measures DVT/VTE Risk/Contraindication: Risk Factor Score Per Nursin RFS Level Per Nursing on Admit: 2=Moderate PAULINE DOHERTY MD Feb 19, 2020 08:24
[2020-02-19] MEDS ORDERED: meTOproloL SUCCINATE 50 MG (TOPROL XL) TAB PO SCH (09:15)
[2020-02-19] MEDS ORDERED: amLODIPine 5 MG (NORVASC) TAB PO SCH (09:15)
[2020-02-19] MEDS ORDERED: lisINopril 20 MG (PRINIVIL) TABLET PO SCH (09:15)
[2020-02-19] MEDS ORDERED: LISI-552 PO (10:33)
[2020-02-19] MEDS ORDERED: METO50TA7 PO (10:33)
[2020-02-19] MEDS ORDERED: AMLO-250 PO (10:33)
[2020-02-19] MEDS ORDERED: CEFU500T63 PO (10:33)
--- NOTE | 2020-02-19 11:00 | NUR ---
Visited with pt about smoking cessation. Pt voices he is not a smoker, but his father was and his brother was as well, but . condolences given to patient regarding family that has passed. Handout on smoking cessation given, enc patient to pass it along to any family member or friend that he knows is seeking help. Thanked patient for his time.
--- NOTE | 2020-02-19 11:34 | Discharge Inst-Simple/Standard ---
Discharge Inst-Standard Discharge Medications New, Converted or Re-Newed RX: Transmitted to Pharmacy Patient Instructions/Follow Up Plan of Care/Instructions/FU: Please continue to take your medications as written. Please follow up with your primary care doctor to follow up this hospital stay. Activity as Tolerated: Yes Discharge Diet: Cardiac Diet Return to The Hospital For: Chest pain, shortness of breath, confusion, weakness, redness, swelling, or drainage at your pacemaker site, fever, if you feel you are getting worse. PAULINE DOHERTY MD Feb 19, 2020 11:34
--- NOTE | 2020-02-19 11:40 | Cardiology Progress Note ---
Subjective Date Seen by Provider: Feb 19, 2020 Time Seen by Provider: 11:38 Subjective/Events-last exam Patient is laying down in bed, feeling better, pacemaker site is healing well Review of Systems General: No Chills, No Night Sweats, No Fatigue, No Malaise, No Appetite, No Other HEENT: No Head Aches, No Visual Changes, No Eye Pain, No Ear Pain, No Dysphasia, No Sinus Congestion, No Post Nasal Drip, No Sore Throat, No Other Pulmonary: No Dyspnea, No Cough, No Pleuritic Chest Pain, No Other Cardiovascular: No: Chest Pain, Palpitations, Orthopnea, Paroxysmal Noc. Dyspnea, Edema, Lt Headedness, Other Objective-Cardiology Exam Last Set of Vital Signs Vital Signs 02/19/20 02/19/20 08:10 11:00 Temp 37.0 Pulse 60 Resp 14 B/P (MAP) 178/100 Pulse Ox 93 O2 Delivery Room Air Capillary Refill : Less Than 3 Seconds I&O Intake and Output 02/19/20 00:00 Intake Total 240 ml Output Total 100 ml Balance 140 ml Intake Oral 240 ml Output Urine Total 100 ml Daily Weight Change No General: Alert, Oriented X3, Cooperative HEENT: Atraumatic, PERRLA Neck: Supple, No JVD, No Thyromegaly Lungs: Clear to Auscultation, Normal Air Movement Heart: Regular Rate, Normal S1, Normal S2, No Murmurs Abdomen: Normal Bowel Sounds, Soft, No Tenderness, No Hepatosplenomegaly, No Masses Extremities: No Clubbing, No Cyanosis, No Edema, Normal Pulses, No Tenderness/Swelling Skin: No Rashes, No Breakdown, No Significant Lesion Neuro: Normal Gait, Normal Speech, Strength at 5/5 X4 Ext, Normal Tone, Sensation Intact Psych/Mental Status: Mental Status NL, Mood NL Results Lab Laboratory Tests 02/18/20 12:25 02/19/20 02:53 A/P-Cardiology Admission Diagnosis Complete heart block Bradycardia Fatigue Assessment/Plan Complete heart block, status post dual-chamber pacemaker implantation done on February 18, 2020, [employer], no complication 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 Probably secondary to bradycardia Questionable underlying coronary artery disease as a cause for his complete heart block versus progressive degenerative disease. Will consider stress test in the future X Okay for discharge from cardiology standpoint, follow-up with my office in one week for wound check Clinical Quality Measures DVT/VTE Risk/Contraindication: Risk Factor Score Per Nursin RFS Level Per Nursing on Admit: 2=Moderate OWEN BOYER MD Feb 19, 2020 11:40
--- NOTE | 2020-02-19 13:30 | NUR ---
PT NEW MEDICATION LIST FAXED TO [facility] PER REQUEST. FAX RECEIVED. HAS NURSE CELL NUMBER AND ADVISED TO CALL IF SHE HAS ANY QUESTION OR CONCERNS.
--- NOTE | 2020-02-19 14:29 | NUR ---
DR BOYER NOTIFIED THIS NURSE PT MAY GO HOME IF SBP STAYS BETWEEN 160-170S. LAST BP WAS 176/100. Addendum: 02/19/20 at 1618 by VIOLETA ZHONG RN DR BOYER NOTIFIED THIS NURSE PT MAY GO HOME IF SBP IS LESS THAN 180. LAST BP WAS 176/100. DR ROSALIND BARRAGAN WITH PT JOSEPH.
[2020-02-19 14:45] VITALS: BP 176/100
--- NOTE | 2020-02-19 14:45 | NUR ---
PT EDUCATED ON DISCHARGE INSTRUCTION AND HOME MEDICATION LIST. PT STATED UNDERSTANDING.
== END 2020-02-19 15:45 | disposition home or self-care (01) ==
LOC: EDUNIT# 12:08 → ER FS 12:09 → ICU 14:06 → INTOOBSV 14:06
PROVIDERS: ADMIT Family Medicine; ATTEND Family Medicine
DX: I44.2 Atrioventricular block, complete (principal); R00.1 Bradycardia, unspecified; R53.83 Other fatigue; I10 Essential (primary) hypertension; E11.9 Type 2 diabetes mellitus without complications; Z79.82 Long term (current) use of aspirin
CPT/HCPCS: 33208; 36415; 71045 ×2; 80053 ×2; 83735; 84484; 85025; 85027; 87081; 93005; 99285; C1785; C1898 ×2

== ENCOUNTER → 2021-03-13 | Outpatient (CLI) | payer MEDICARE ==
[~2021-03-13] MED LIST changes: +AMLO-250 PO; +ASPI-999 PO; +CATHETER FLUSH 10 ML SYR IV PRN; +CEFU500T63 PO; -GADOBUTROL 10 MMOL/10 ML (GADAVIST) VIAL IV ONE; +LISI10TA25 PO; +LISI20TA26 PO; +METO50TA7 PO; +REGADENOSON 0.4 MG/5 ML SYR (LEXISCAN) IV ONE
[2021-03-13 09:24] VITALS: BP 164/107
--- NOTE | 2021-03-13 12:39 | Cardiology Stress Test Report ---
Stress Test Report Date of Procedure/Referring: Date of Procedure: Mar 13, 2021 PCP Owen Henry MD Admitting Physician Teja Solorio MD Indications: HTN Baseline Heart Rate: 80 Baseline Blood Pressure: Blood Pressure Systolic: 164 Blood Pressure Diastolic: 107 Baseline Vitals Vital Signs Date Time Temp Pulse Resp B/P (MAP) Pulse Ox O2 Delivery O2 Flow Rate FiO2 03/13/21 09:24 72 164/107 (126) Baseline EKG: Baseline EKG: LBBB Summary After explaining the procedure to the patient, he signed a consent and then brought to the stress nuclear laboratory. Patient received 0.4 mg Lexiscan for stress test, ECG, heart rate and blood pressure were monitored continuously. Resting and stress dose of radio tracer were injected, imaging was acquired and reviewed in short axis, horizontal long axis and vertical long axis views. TID: 1 SSS: 5 SDS: 3 EF: 45 1. Patient tolerated Lexiscan well 2. Baseline left bundle branch block persisted during test 3. Diaphragmatic attenuation with decreased uptake involving the mid to apical inferior wall and inferoseptum with mild reversibility 4. Normal left ventricular size with hypokinesia of the inferior wall, ejection fraction 45% OWEN HENRY MD Mar 13, 2021 12:39
== END ==
LOC: CARD 08:15
PROVIDERS: ATTEND Internal Medicine Cardiovascular Disease
DX: I10 Essential (primary) hypertension (principal); I25.10 Atherosclerotic heart disease of native coronary artery without angina pectoris
CPT/HCPCS: 78452; 93017; A9502

== ENCOUNTER 2021-03-29 11:00 | Day surgery (SDC) | payer MEDICARE ==
[2021-03-29] VITALS (13 sets, daily range): BP systolic 103–154; BP diastolic 68–104
[~2021-03-29] VITALS: Ht 182.8 cm; Wt 91.4 kg
[2021-03-29 09:28] LABS: HEMATOCRIT 45 % (40-54); HEMOGLOBIN 15.5 g/dL (13.3-17.7); MEAN CORPUSCULAR HEMOGLOBIN 32 pg (25-34); MEAN CORPUSCULAR HGB CONC 35 g/dL (32-36); MEAN CORPUSCULAR VOLUME 92 fL (80-99); MEAN PLATELET VOLUME 10.5 fL (9.0-12.2); PLATELET COUNT 189 10^3/uL (130-400); WHITE BLOOD COUNT 7.1 10^3/uL (4.3-11.0)
--- NOTE | 2021-03-29 09:33 | Diagnostic Imaging Report ---
INDICATION: Abnormal stress test. Frontal chest dated 9:28 a.m. and compared to 02/18/2020. Heart is normal in size. Mediastinal silhouette is unremarkable. Lungs are clear. There is no pneumothorax or pleural fluid. Pacemaker is unchanged. Compared to the prior study of 02/16/2020, the pulmonary vascular congestive changes have resolved IMPRESSION: Negative chest, resolution of pulmonary vascular congestion compared with 02/18/2020. Dictated by: Dictated on workstation # [id number]
[2021-03-29 09:43] LABS: INR 0.9 (0.8-1.4); PROTHROMBIN TIME PATIENT 12.9 SEC (12.2-14.7)
[2021-03-29 09:52] LABS: ALBUMIN 4.1 GM/DL (3.2-4.5); CALCIUM 9.1 MG/DL (8.5-10.1); CREATININE SERUM 1.06 MG/DL (0.60-1.30); POTASSIUM 3.9 MMOL/L (3.6-5.0); TOTAL PROTEIN 7.2 GM/DL (6.4-8.2)
--- NOTE | 2021-03-29 10:08 | Conscious Sedation/ASA ---
Conscious Sedation Pre-Proced Time 10:08 ASA Score 3 For ASA 3 and 4: Consider anesthesia and medical clearance. Also, for patients with a history of failed moderate sedation consider anesthesia. Airway Lungs Heart ASA score ASA 1: a normal healthy patient ASA 2: a patient with a mild systemic disease (mid diabetes, controlled hypertension, obesity ASA 3: a patient with a severe systemic disease that limits activity (angina, COPD, prior Myocardial infarction) ASA 4: a patient with an incapacitating disease that is a constant threat to life (CHF, renal failure) ASA 5: a moribund patient not expected to survive 24 hrs. (ruptured aneurysm) ASA 6: a declared brain- patient whose organs are being harvested. For emergent operations, add the letter E after the classification Mallampati Classification Grade 3 Sedation Plan Analgesia, Amnesia, Plan communicated to team members, Discussed options with patient/fam, Discussed risks with patient/fam The patient is an appropriate candidate to undergo the planned procedure, sedation, and anesthesia. The patient immediately re-assessed prior to indication. OWEN BOYER MD Mar 29, 2021 10:08
[~2021-03-29 11:00] MED LIST changes: +AMLO-251 PO; +ASPI-1238 PO; +ATOR10TA PO; +CALC-823 PO; -CATHETER FLUSH 10 ML SYR IV PRN; +CINN500C2 PO; +HEParin (CATH LAB) 2,000 ML IV ONE; +HYDR25TA4 PO; +LIDOCAINE 1% INJ 20 ML 20 ML VIAL ONE; +LOSA100T57 PO; +LOSA25TA41 PO; +METO200T48 PO; +MIDAZOLAM 5 MG/5 ML (VERSED) VIAL ONE; +NAPR220T66 PO; +NS IV 1000 ML 1,000 ML IV SCH; +NS IV 1000 ML 1,000 ML ONE; +OMG1KC PO; +PATIENT MAY USE OWN MEDS, ALL PO SCH; -REGADENOSON 0.4 MG/5 ML SYR (LEXISCAN) IV ONE; +fentaNYL INJ 100 MCG/2 ML AMP ONE
--- NOTE | 2021-03-29 11:01 | Discharge Inst-Post CATH ---
Discharge Inst-CATH/EP Problems Reviewed?: Yes Post Cardiac Cath/EP D/C Inst Follow Up/Plan Appointment with Dr. Henry's office in 2 to 4 weeks <b>CARDIAC CATH/EP PROCEDURE DISCHARGE INSTRUCTIONS</b> ACTIVITY * Go Home directly and rest. * Limit activity of the leg (or wrist if it was used) for 7 days including aer obics, swimming, jogging, bicycling, etc. * Restrict stair-climbing for 7 days if possible, if not, climb up with your non-cath leg, then bring together on the same step. * Avoid lifting, pushing, pulling or excessive movement of the affected extremi ty for 7 days. * Customary sexual activity may be resumed after 2 days-use caution not to use a position that strains or causes pain to the affected extremity. * No driving for 24 hours. * NO SMOKING. * Avoid straining for bowel movements for 7 days. * Gentle walking on level ground is allowed. * Returning to work will depend on the type of procedure and the results. Your doctor will discuss this with you. CALL YOUR DOCTOR FOR ANY OF THE FOLLOWING: *If bleeding from the puncture site occurs- Apply gentle pressure to site with clean cloth and call your doctor or EMS. * If a knot or lump forms under the skin, increases in size, or causes pain. * If bruising appears to be worsening or moving further down your leg instead of disappearing. * Temperature above 101 F. CARE OF YOUR GROIN INCISION; * Bruising or purple discoloration of the skin near the puncture site is common. * You may shower only, no bathtub bathing for 5 days. Be careful to avoid slipping as your leg may feel stiff. * If a closure device was used on your femoral artery, please see the attached guide regarding care of the device and your leg. * Leave dressing on FOR 24 hours. CARE OF YOUR WRIST INCISION; * Bruising or purple discoloration of the skin near the puncture site is common. * You may shower. * DO NOT submerge wrist. * Leave dressing on FOR 24 hours. OWEN HENRY MD Mar 29, 2021 11:01
--- NOTE | 2021-03-29 11:05 | Cardiac Cath Report ---
Cardiac Cath Report Physician (s)/Truck Caterer (s) Physician OWEN BOYER MD Pre-Procedure Diagnosis Pre-Procedure Diagnosis: Coronary artery disease Post-Procedure Note Procedure Start Date: Mar 29, 2021 Name of Procedure: Left heart catheterization Left ventriculogram Aortic arch angiogram Findings/Procedure Note PROCEDURE NOTE: 85-year-old gentleman with history of hypertension, hyperlipidemia, abnormal stress test, scheduled for cardiac catheterization possible PTCA. After explaining the procedure to the patient, all pros and cons were explained, all questions were answered. The patient signed the consent and then he was placed on the cardiac catheterization laboratory. Groin was prepped SL fashion local anesthesia was used. Sheath placed in the right femoral artery. Ramez right and left catheter were used to access the coronary system. Pigtail was used to access the left ventricular cavity. Left ventriculogram was done Aortic arch angiogram was done to evaluate the prominent aortic arch. At the end of the procedure the sheath was removed. Closure device was deployed FINDINGS: Hemodynamics LV 117/6, end-diastolic pressure of 6 Aorta 113/63 mean of 84 ANATOMY: Left Main is free of obstructive disease Left Anterior Descending is slightly tortuous with mild disease nonobstructive disease Left Circumflex is free of obstructive disease Right Coronary Artery is slightly tortuous with mild disease nonobstructive disease LV Gram was done showing normal left ventricular size and systolic function estimate ejection fraction 60% Aorta evaluation showed slightly prominent aortic arch and ascending aorta, there is no dissection or aneurysm, slightly prominent brachiocephalic artery with some tortuosity, tortuous left carotid artery with no obstructive disease, no obstructive disease in the left subclavian artery. CONCLUSION: 1. Slightly tortuous coronary system with mild disease nonobstructive disease 2. Normal left ventricular size and systolic function estimate ejection fraction 60% 3. Prominent ascending aorta and aortic arch, there is no dissection or aneurysm was noted, hypertensive changes were noted with slightly tortuous brachiocephalic artery and left carotid artery with no obstructive disease DISCUSSION AND RECOMMENDATION: Maximizing medical therapy, adding statin is recommended. No intervention is warranted Anesthesia Type: Conscious Sedation Estimated blood loss (mL): 15 ml Contrast Amount: 88 ml Total Radiation Dose: 490 mGy Post-Procedure Diagnosis Post-operative diagnosis: Coronary artery disease Hypertension Hyperlipidemia Permanent pacemaker OWEN BOYER MD Mar 29, 2021 11:05
== END 2021-03-29 15:55 | disposition home or self-care (01) ==
LOC: CATH 11:00
PROVIDERS: ATTEND Internal Medicine Cardiovascular Disease
DX: I25.10 Atherosclerotic heart disease of native coronary artery without angina pectoris (principal); I10 Essential (primary) hypertension; E78.2 Mixed hyperlipidemia; I65.23 Occlusion and stenosis of bilateral carotid arteries; Z95.0 Presence of cardiac pacemaker; Z79.82 Long term (current) use of aspirin; Z79.899 Other long term (current) drug therapy
CPT/HCPCS: 36221; 71045; 80053; 80061; 85027; 85610; 85730; 87081; 93458; C1760; C1894; 36415

== ENCOUNTER → 2021-04-19 | Outpatient (CLI) | payer MEDICARE ==
[~2021-04-19] MED LIST changes: -HEParin (CATH LAB) 2,000 ML IV ONE; -LIDOCAINE 1% INJ 20 ML 20 ML VIAL ONE; -MIDAZOLAM 5 MG/5 ML (VERSED) VIAL ONE; -NS IV 1000 ML 1,000 ML IV SCH; -NS IV 1000 ML 1,000 ML ONE; -PATIENT MAY USE OWN MEDS, ALL PO SCH; -fentaNYL INJ 100 MCG/2 ML AMP ONE
--- NOTE | 2021-04-19 09:56 | Diagnostic Imaging Report ---
INDICATION: Left knee pain. TIME OF EXAM: 9:40 AM 3 views left knee were obtained. There are severe medial compartmental degenerative changes with complete loss of the joint space and marginal osteophyte formation. There is milder lateral compartment degenerative change. There appears to be moderate patellofemoral degenerative change. There is moderate-sized knee joint effusion. No fracture or dislocation is seen. IMPRESSION: Significant degenerative changes and moderate size knee joint effusion. Dictated by: Dictated on workstation # [id number]
== END ==
LOC: RAD FS 09:30
PROVIDERS: ATTEND Nurse Practitioner
DX: M17.12 Unilateral primary osteoarthritis, left knee (principal)
CPT/HCPCS: 73562

== ENCOUNTER → 2022-05-17 | Outpatient (CLI) | payer MEDICARE | LOC: CARDFS 11:30 | PROVIDERS: ATTEND Internal Medicine Cardiovascular Disease | DX: I11.9 Hypertensive heart disease without heart failure (principal) | CPT/HCPCS: 93306 ==

== ENCOUNTER 2022-06-10 12:56 | Inpatient (IN) | payer MEDICARE ==
[~2022-06-10] VITALS: Ht 157.4 cm; Wt 90.2 kg
--- NOTE | 2022-06-10 13:14 | ED Upper Extremity ---
General Chief Complaint: Upper Extremity Stated Complaint: RIGHT HAND SWOLLEN, POSSIBLE BITE History of Present Illness Date Seen by Provider: Jun 10, 2022 Time Seen by Provider: 13:12 Initial Comments 87-year-old male with PMH of atrial fibrillation with a pacemaker placed in January 2020, on Eliquis/DM2/ HTN, is here with complaints of right hand redness and swelling with pus coming out of his knuckle, which began 5 days ago. Today morning patient noticed that he had red streaks going up his forearm and a red crusty spot over the flexor crease of the elbow. Patient admits to taking a needle and poking at his hand the other day to try to drain the pus, without success, and only worsening it. Patient also put rubbing alcohol on it which also worsened it. Denies fever, chills, chest pain, shortness of breath. Patient stated that the injury occurred first is an abrasion over the knuckle and then slowly worsened after he scraped his hand in the same area. Allergies and Home Medications Allergies Coded Allergies: No Known Drug Allergies (Unverified , 05/08/19) Patient Home Medication List Home Medication List Reviewed: Yes Amlodipine Besylate (Amlodipine Besylate) 10 Mg Tablet, 5 MG PO DAILY, (Reported) Entered as Reported by: ALCON SALEEM on 03/29/21 09 Aspirin (Aspirin EC) 81 Mg Tablet.dr, 81 MG PO HS, (Reported) Entered as Reported by: ALCON SALEEM on 03/29/21 09 Atorvastatin Calcium (Lipitor) 10 Mg Tablet, 10 MG PO DAILY Prescribed by: OWEN BOYER on 03/29/21 1100 Calcium Carbonate (Calcium) 500 Mg Tablet, 500 MG PO DAILY, (Reported) Entered as Reported by: ALCON SALEEM on 03/29/21952 Cinnamon Bark (Cinnamon) 500 Mg Capsule, 500 MG PO DAILY, (Reported) Entered as Reported by: ALCON SALEEM on 03/29/21 09 Hydrochlorothiazide (Hydrochlorothiazide) 25 Mg Tablet, 25 MG PO DAILY, (Reported) Entered as Reported by: ALCON SALEEM on 03/29/21 09 Losartan Potassium (Losartan Potassium) 100 Mg Tablet, 100 MG PO DAILY, (Reported) Entered as Reported by: ALCON SALEEM on 03/29/21 09 Metoprolol Succinate (Metoprolol Succinate) 200 Mg Tab.er.24h, 100 MG PO HS, (Reported) Entered as Reported by: ALCON SALEEM on 03/29/21952 Naproxen Sodium (Aleve) 220 Mg Tablet, 220 MG PO Q8H PRN for PAIN-MILD (1-4), (Reported) Entered as Reported by: ALCON SALEEM on 03/29/21952 [place] 3 Polyunsat Fatty Acids (Fish Oil 1,000 mg Capsule) 1,000 Mg Cap, 1,000 MG PO DAILY, (Reported) Entered as Reported by: ALCON SALEEM on 03/29/21952 Review of Systems Constitutional: no symptoms reported EENTM: no symptoms reported Respiratory: no symptoms reported Cardiovascular: no symptoms reported Gastrointestinal: no symptoms reported Genitourinary: no symptoms reported Musculoskeletal: no symptoms reported Skin: lesions Psychiatric/Neurological: No Symptoms Reported Past Auxnwop-Twdmnc-Dzxwol Hx Patient Social History Tobacco Use?: No Use of E-Cig and/or Vaping dev: No Substance use?: No Alcohol Use?: No Pt feels they are or have been: No Immunizations Up To Date Influenza Vaccine Up-to-Date: Yes; Up-to-Date Seasonal Allergies Seasonal Allergies: No Past Medical History Abdominal, Pacemaker Respiratory: No Cardiac: Yes Hypertension Neurological: No Genitourinary: No Gastrointestinal: No Musculoskeletal: No Endocrine: Yes (PRE DIABETIC) Cancer: No Psychosocial: No Integumentary: No Family Medical History No Pertinent Family Hx Physical Exam Vital Signs Vital Signs - First Documented 06/10/22 12:58 Temp 37.4 Pulse 83 Resp 16 B/P (MAP) 142/79 (100) Pulse Ox 97 O2 Delivery Room Air Capillary Refill : Height, Weight, BMI Height: '" Weight: lbs. oz. kg; 27.35 BMI Method: General Appearance: WD/WN, no apparent distress HEENT: PERRL/EOMI Neck: full range of motion Cardiovascular: regular rate, rhythm, no edema Respiratory: lungs clear Shoulder: normal inspection Elbow/Forearm: Right, limited ROM (Of fingers due to swelling.), soft tissue tenderness, swelling (Swelling of right hand and fingers with crusted swelling over the second MCP joint with overlying skin showing erythema, puncture wounds with serosanguineous fluid oozing, warm to touch with red streaks going up the forearm, with another erythematous crusted area of infection at the antecubital fossa. Elbow movements are normal. N/V bundle intact throughout.) Wrist: Yes normal inspection, Yes non-tender, Yes normal ROM Hand: Right, limited ROM, swelling Neurologic/Tendon: normal sensation, normal motor functions, normal tendon functions Neurologic/Psychiatric: no motor/sensory deficits, alert, normal mood/affect, oriented x 3 Skin: other (See elbow forearm exam) Progress/Results/Core Measures Results/Orders Lab Results Laboratory Tests Test 06/10/22 13:00 Range/Units White Blood Count 19.8 H 4.3-11.0 10^3/uL Red Blood Count 4.59 4.30-5.52 10^6/uL Hemoglobin 14.2 13.3-17.7 g/dL Hematocrit 41 40-54 % Mean Corpuscular Volume 89 80-99 fL Mean Corpuscular Hemoglobin 31 25-34 pg Mean Corpuscular Hemoglobin Concent 35 32-36 g/dL Red Cell Distribution Width 13.7 10.0-14.5 % Platelet Count 230 130-400 10^3/uL Mean Platelet Volume 10.3 9.0-12.2 fL Immature Granulocyte % (Auto) 1 % Neutrophils (%) (Auto) 81 H 42-75 % Lymphocytes (%) (Auto) 10 L 12-44 % Monocytes (%) (Auto) 8 0-12 % Eosinophils (%) (Auto) 0 0-10 % Basophils (%) (Auto) 0 0-10 % Neutrophils # (Auto) 16.1 H 1.8-7.8 10^3/uL Lymphocytes # (Auto) 2.0 1.0-4.0 10^3/uL Monocytes # (Auto) 1.5 H 0.0-1.0 10^3/uL Eosinophils # (Auto) 0.0 0.0-0.3 10^3/uL Basophils # (Auto) 0.1 0.0-0.1 10^3/uL Immature Granulocyte # (Auto) 0.1 0.0-0.1 10^3/uL Neutrophils % (Manual) 86 % Lymphocytes % (Manual) 8 % Monocytes % (Manual) 6 % Erythrocyte Sedimentation Rate 61 H 0-30 MM/HR Prothrombin Time 17.2 H 12.2-14.7 SEC INR Comment 1.4 0.8-1.4 Activated Partial Thromboplast Time 35 24-35 SEC D-Dimer 1.40 H 0.00-0.49 UG/ML Sodium Level 133 L 135-145 MMOL/L Potassium Level 3.4 L 3.6-5.0 MMOL/L Chloride Level 93 L 98-107 MMOL/L Carbon Dioxide Level 25 21-32 MMOL/L Anion Gap 15 H 5-14 MMOL/L Blood Urea Nitrogen 28 H 7-18 MG/DL Creatinine 1.18 0.60-1.30 MG/DL Estimat Glomerular Filtration Rate 60 BUN/Creatinine Ratio 24 Glucose Level 243 H 70-105 MG/DL Lactic Acid Level 2.00 0.50-2.00 MMOL/L Calcium Level 9.5 8.5-10.1 MG/DL Corrected Calcium 9.5 8.5-10.1 MG/DL Total Bilirubin 1.3 H 0.1-1.0 MG/DL Aspartate Amino Transf (AST/SGOT) 20 5-34 U/L Alanine Aminotransferase (ALT/SGPT) 17 0-55 U/L Alkaline Phosphatase 87 40-136 U/L C-Reactive Protein 17.04 H <0.50 MG/DL Total Protein 7.6 6.4-8.2 GM/DL Albumin 4.0 3.2-4.5 GM/DL My Orders Orders - FIDEL VYAS MD Cbc With Automated Diff (06/10/22 13:14) Comprehensive Metabolic Panel (06/10/22 13:14) Blood Culture (06/10/22 13:14) Wound Culture (06/10/22 13:14) Erythrocyte Sedimentation Rate (06/10/22 13:14) Crp Fs (06/10/22 13:14) Lactic Acid Analyzer (06/10/22 13:14) Fibrin Degradation Products (06/10/22 13:22) Protime With Inr (06/10/22 13:22) Partial Thromboplastin Time (06/10/22 13:22) Manual Differential (06/10/22 13:00) Zosyn 4.5 Gm Iv (06/10/22 14:15) Vancomycin 1 Gm Iv (06/10/22 14:15) Vital Signs/I&O 06/10/22 12:58 Temp 37.4 Pulse 83 Resp 16 B/P (MAP) 142/79 (100) Pulse Ox 97 O2 Delivery Room Air Progress Progress Note : Progress Note 1. RIGHT HAND/ FOREARM CELLULITIS: - CBC: WBC is 19.8 with a left shift, bilirubin is 1.3, - Blood culture/ wound culture: sent - CRP/ ESR: CRP is elevated at 17.04 - Lactic acid normal -Zosyn and Vanco IV ordered in the ER since patient is a diabetic -Discussed with hospitalist and accepted for admission to [place]. 2. ELEVATED D-DIMER: - D-dimer: Elevated at 1.40 -There is no ultrasound available at [place] today, and patient will need an ultrasound due to elevated D-dimer and stranding of the forearm.. Concern for superficial thrombophlebitis versus DVT of right upper extremity Departure Impression Primary Impression: Cellulitis of right hand Additional Impressions: Cellulitis of right forearm Elevated d-dimer Disposition: 30 STILL A PATIENT Condition: Stable Admissions Decision to Admit Reason: Admit from ER (General) Transfer Method of Transfer: Private Vehicle Departure-Patient Inst. Referrals: ANGEL GUTIERREZ MD (PCP/Family) Primary Care Physician FIDEL VYAS MD Jun 10, 2022 13:13
[2022-06-10 13:21] LABS: BASOPHILS # (AUTO) 0.1 10^3/uL (0.0-0.1); BASOPHILS % (AUTO) 0 % (0-10); EOSINOPHILS % (AUTO) 0 % (0-10); HEMATOCRIT 41 % (40-54); HEMOGLOBIN 14.2 g/dL (13.3-17.7); LYMPHOCYTES % (AUTO) 10 % (12-44); MEAN CORPUSCULAR HEMOGLOBIN 31 pg (25-34); MEAN CORPUSCULAR HGB CONC 35 g/dL (32-36); MEAN CORPUSCULAR VOLUME 89 fL (80-99); MEAN PLATELET VOLUME 10.3 fL (9.0-12.2); MONOCYTES # (AUTO) 1.5 10^3/uL (0.0-1.0); MONOCYTES % (AUTO) 8 % (0-12); NEUTROPHILS # (AUTO) 16.1 10^3/uL (1.8-7.8); NEUTROPHILS % (AUTO) 81 % (42-75); PLATELET COUNT 230 10^3/uL (130-400); WHITE BLOOD COUNT 19.8 10^3/uL (4.3-11.0)
[2022-06-10 13:37] LABS: CREATININE SERUM 1.18 MG/DL (0.60-1.30); POTASSIUM 3.4 MMOL/L (3.6-5.0)
[2022-06-10 13:38] LABS: BILIRUBIN,TOTAL 1.3 MG/DL (0.1-1.0); CALCIUM 9.5 MG/DL (8.5-10.1); TOTAL PROTEIN 7.6 GM/DL (6.4-8.2)
[2022-06-10 13:39] LABS: INR 1.4 (0.8-1.4); PROTHROMBIN TIME PATIENT 17.2 SEC (12.2-14.7)
[2022-06-10 13:44] LABS: ERYTHROCYTE SEDIMENTATION RATE 61 MM/HR (0-30)
[2022-06-10 13:47] LABS: FIBRIN DEGRADATION PRODUCTS 1.4 UG/ML (0.00-0.49)
[2022-06-10 13:53] LABS: LYMPHOCYTES % (MANUAL) 8 %; MONOCYTES % (MANUAL) 6 %; NEUTROPHILS % (MANUAL) 86 %
[2022-06-10] MEDS ORDERED: PIPERACILLIN SODIUM/TAZOBACTAM 4.5 GM in NS (IVPB) 100 ML IV ONE (14:15)
[2022-06-10] MEDS ORDERED: VANCOMYCIN INJECTION 1,000 MG in NS (IVPB) 250 ML IV ONE (14:15)
[2022-06-10] MEDS ORDERED: ACETAMINOPHEN 325 MG TABLET PO PRN (18:30)
[2022-06-10] MEDS ORDERED: HALOPERIDOL 5 MG/ML (HALDOL) VIAL IM PRN (18:30)
[2022-06-10] MEDS ORDERED: ONDANSETRON 4 MG (ZOFRAN) ORAL DISSOLVE TAB PO PRN (18:30)
[2022-06-10] MEDS ORDERED: VANCOMYCIN INJECTION 0.1 MG in NS (IVPB) 250 ML IV SCH (18:30)
[2022-06-10] MEDS ORDERED: polyethylene glycoL POWDER 17 GM (MIRALAX) PACK PO PRN (18:30)
[2022-06-10] MEDS ORDERED: diphenhydrAMINE 50 MG/ML INJ (BENADRYL) IVP PRN (18:30)
[2022-06-10] MEDS ORDERED: LORazepam INJ 2 MG/ML (ATIVAN) VIAL IVP PRN (18:30)
[2022-06-10] MEDS ORDERED: MELATONIN 3 MG TABLET PO PRN (18:30)
[2022-06-10] MEDS ORDERED: ANTACID SUSP 30 ML UDC (MYLANTA) PO PRN (18:30)
[2022-06-10] MEDS ORDERED: diphenhydrAMINE 25 MG TAB (BENADRYL) PO PRN (18:30)
[2022-06-10] MEDS ORDERED: cloNIDine 0.1 MG (CATAPRES) TAB PO PRN (18:30)
[2022-06-10] MEDS ORDERED: LORazepam 0.5 MG (ATIVAN) TABLET PO PRN (18:30)
[2022-06-10] MEDS ORDERED: ONDANSETRON 4 MG/2 ML (SDV) Z0FRAN IV PRN (18:30)
[2022-06-10] MEDS ORDERED: HYDROmorphone 2 MG/ML VIAL (DILAUDID) IV PRN (18:30)
[2022-06-10] MEDS ORDERED: BISACODYL 10 MG SUPP (DULCOLAX) PR PRN (18:30)
[2022-06-10] MEDS: NS IV 1000 ML 1,000 ML IV SCH (18:40)
[2022-06-10] MEDS ORDERED: NS IV 1000 ML 1,000 ML ONE (18:40)
[2022-06-10] MEDS ORDERED: APIX5TAB PO (19:16)
[2022-06-10] MEDS ORDERED: METF-397 PO (19:16)
[2022-06-10 19:37] VITALS: BP 117/62
[2022-06-10 20:32] VITALS: BP 142/79
[2022-06-10] MEDS ORDERED: RT-ALBUTEROL SULF 2.5 MG/3 ML PRE-MIX VIAL INH PRN (20:45)
[2022-06-10] MEDS ORDERED: VANCOMYCIN 750 MG/NS 250 ML IVPB IV ONE ×2 (21:15)
[2022-06-10] MEDS: inSUlin ASPART (NovoLOG) 1 UNIT/0.01 ML (CHARGE PER UNIT) SC SCH (21:50)
[2022-06-10] MEDS: DOCUSATE SODIUM 100 MG (COLACE) CAP PO SCH (21:50)
[2022-06-10] MEDS: APIXABAN 5 MG (ELIQUIS) TABLET PO SCH (21:50)
--- NOTE | 2022-06-10 22:07 | Consultation - Surgery ---
History of Present Illness History of Present Illness Patient Consulted On(melanie/time) 06/10/22 21:40 Date Seen by Provider: Jun 10, 2022 Time Seen by Provider: 09:00 Allergies and Home Medications Allergies Coded Allergies: No Known Drug Allergies (Unverified , 05/08/19) Patient Home Medication List Amlodipine Besylate (Amlodipine Besylate) 10 Mg Tablet, 5 MG PO DAILY, (Reported) Entered as Reported by: ALCON SALEEM on 03/29/21952 Last Action: Reviewed Apixaban (Eliquis) 5 Mg Tablet, 1 EA PO BID, (Reported) Entered as Reported by: SABINO HINES on 06/10/221915 Last Action: New Order Aspirin (Aspirin EC) 81 Mg Tablet.dr, 81 MG PO HS, (Reported) Entered as Reported by: ALCON SALEEM on 03/29/21952 Atorvastatin Calcium (Lipitor) 10 Mg Tablet, 10 MG PO DAILY Prescribed by: OWEN BOYER on 03/29/211099 Calcium Carbonate (Calcium) 500 Mg Tablet, 500 MG PO DAILY, (Reported) Entered as Reported by: ALCON SALEEM on 03/29/21952 Cinnamon Bark (Cinnamon) 500 Mg Capsule, 500 MG PO DAILY, (Reported) Entered as Reported by: ALCON SALEEM on 03/29/21952 Hydrochlorothiazide (Hydrochlorothiazide) 25 Mg Tablet, 25 MG PO DAILY, (Reported) Entered as Reported by: ALCON SALEEM on 03/29/21952 Last Action: Reviewed Losartan Potassium (Losartan Potassium) 100 Mg Tablet, 100 MG PO DAILY, (Reported) Entered as Reported by: ALCON SALEEM on 03/29/21954 Last Action: Reviewed Metformin HCl (Metformin HCl) 500 Mg Tablet, 500 MG PO DAILY, (Reported) Entered as Reported by: SABINO HINES on 06/10/221915 Last Action: New Order Metoprolol Succinate (Metoprolol Succinate) 200 Mg Tab.er.24h, 100 MG PO HS, (Reported) Entered as Reported by: ALCON SALEEM on 03/29/21952 Naproxen Sodium (Aleve) 220 Mg Tablet, 220 MG PO Q8H PRN for PAIN-MILD (1-4), (Reported) Entered as Reported by: ALCON SALEEM on 03/29/21 0953 [place] 3 Polyunsat Fatty Acids (Fish Oil 1,000 mg Capsule) 1,000 Mg Cap, 1,000 MG PO DAILY, (Reported) Entered as Reported by: ALCON SALEEM on 03/29/21 0953 Past Kohbdvj-Kojylw-Bydxyx Hx Patient Social History Smoking Status: Never a Smoker Alcohol Use?: No Immunizations Up To Date Date of Pneumonia Vaccine: Feb 17, 2019 Date of Influenza Vaccine: Mar 19, 2022 Seasonal Allergies Seasonal Allergies: No Surgeries Surgeries: Abdominal (Hernia ), Pacemaker Respiratory History of Respiratory Disorde: No Cardiovascular History of Cardiac Disorders: Yes Cardiac Disorders: Hypertension Neurological History of Neurological Disord: No Genitourinary History of Genitourinary Disor: No Gastrointestinal History of Gastrointestinal Di: No Musculoskeletal History of Musculoskeletal Dis: No Endocrine History of Endocrine Disorders: Yes (PRE DIABETIC) Cancer History of Cancer: No Psychosocial History of Psychiatric Problem: No Integumentary History of Skin or Integumenta: No Family Medical History Significant Family History: No Pertinent Family Hx, Heart Disease, CAD Under 55 Years Old, CAD Over 55 Years Old, Diabetes, Hypertension Review of Systems-General Constitutional: chills; No fever Cardiovascular: No chest pain, No palpitations Gastrointestinal: No abdominal pain, No constipation, No diarrhea, No nausea, No vomiting Physical Exam-General Problems Physical Exam Vital Signs Vital Signs - First Documented 06/10/22 06/10/22 12:58 20:32 Temp 37.4 Pulse 83 Resp 16 B/P (MAP) 142/79 (100) Pulse Ox 97 O2 Delivery Room Air FiO2 21 Capillary Refill : Data Review Labs Laboratory Tests 06/10/22 13:00: White Blood Count 19.8H, Red Blood Count 4.59, Hemoglobin 14.2, Hematocrit 41, Mean Corpuscular Volume 89, Mean Corpuscular Hemoglobin 31, Mean Corpuscular Hemoglobin Concent 35, Red Cell Distribution Width 13.7, Platelet Count 230, Mean Platelet Volume 10.3, Immature Granulocyte % (Auto) 1, Neutrophils (%) (Auto) 81H, Lymphocytes (%) (Auto) 10L, Monocytes (%) (Auto) 8, Eosinophils (%) (Auto) 0, Basophils (%) (Auto) 0, Neutrophils # (Auto) 16.1H, Lymphocytes # (Auto) 2.0, Monocytes # (Auto) 1.5H, Eosinophils # (Auto) 0.0, Basophils # (Auto) 0.1, Immature Granulocyte # (Auto) 0.1, Neutrophils % (Manual) 86, Lymphocytes % (Manual) 8, Monocytes % (Manual) 6, Erythrocyte Sedimentation Rate 61H, Prothrombin Time 17.2H, INR Comment 1.4, Activated Partial Thromboplast Time 35, D-Dimer 1.40H, Sodium Level 133L, Potassium Level 3.4L, Chloride Level 93L, Carbon Dioxide Level 25, Anion Gap 15H, Blood Urea Nitrogen 28H, Creatinine 1.18, Estimat Glomerular Filtration Rate 60, BUN/Creatinine Ratio 24, Glucose Level 243H, Lactic Acid Level 2.00, Calcium Level 9.5, Corrected Calcium 9.5, Total Bilirubin 1.3H, Aspartate Amino Transf (AST/SGOT) 20, Alanine Aminotransferase (ALT/SGPT) 17, Alkaline Phosphatase 87, C-Reactive Protein 17.04H, Total Protein 7.6, Albumin 4.0 06/10/22 19:54: Glucometer 330H ROCKY ARAMBULA Jun 10, 2022 22:07
[2022-06-10] MEDS: PIPERACILLIN SODIUM/TAZOBACTAM 4.5 GM in NS (IVPB) 100 ML IV SCH (22:45)
[2022-06-11 00:32] VITALS: BP 125/59
[2022-06-11] MEDS: PIPERACILLIN SODIUM/TAZOBACTAM 4.5 GM in NS (IVPB) 100 ML IV SCH ×2 (04:47→12:24)
[2022-06-11 04:48] VITALS: BP 123/65
[2022-06-11] MEDS: inSUlin ASPART (NovoLOG) 1 UNIT/0.01 ML (CHARGE PER UNIT) SC SCH ×4 (04:51→21:12)
[2022-06-11 05:35] LABS: BASOPHILS # (AUTO) 0.1 10^3/uL (0.0-0.1); BASOPHILS % (AUTO) 0 % (0-10); EOSINOPHILS # (AUTO) 0.1 10^3/uL (0.0-0.3); EOSINOPHILS % (AUTO) 0 % (0-10); HEMATOCRIT 34 % (40-54); HEMOGLOBIN 11.7 g/dL (13.3-17.7); LYMPHOCYTES # (AUTO) 1.3 10^3/uL (1.0-4.0); LYMPHOCYTES % (AUTO) 9 % (12-44); MEAN CORPUSCULAR HEMOGLOBIN 31 pg (25-34); MEAN CORPUSCULAR HGB CONC 35 g/dL (32-36); MEAN CORPUSCULAR VOLUME 90 fL (80-99); MEAN PLATELET VOLUME 10.5 fL (9.0-12.2); MONOCYTES # (AUTO) 1.1 10^3/uL (0.0-1.0); MONOCYTES % (AUTO) 8 % (0-12); NEUTROPHILS # (AUTO) 11.6 10^3/uL (1.8-7.8); NEUTROPHILS % (AUTO) 82 % (42-75); PLATELET COUNT 183 10^3/uL (130-400); WHITE BLOOD COUNT 14.3 10^3/uL (4.3-11.0)
[2022-06-11 05:52] LABS: ALBUMIN 2.9 GM/DL (3.2-4.5); POTASSIUM 2.9 MMOL/L (3.6-5.0)
[2022-06-11 05:53] LABS: CALCIUM 8.1 MG/DL (8.5-10.1)
[2022-06-11 05:55] LABS: TOTAL PROTEIN 5.7 GM/DL (6.4-8.2)
[2022-06-11 05:56] LABS: BILIRUBIN,TOTAL 1.3 MG/DL (0.1-1.0)
[2022-06-11 05:58] LABS: CREATININE SERUM 1.23 MG/DL (0.60-1.30)
[2022-06-11] MEDS: NS IV 1000 ML 1,000 ML IV SCH ×2 (07:28→21:13)
--- NOTE | 2022-06-11 07:37 | Consultation - Surgery ---
ROCKY ARAMBULA 06/11/22 0737: History of Present Illness History of Present Illness Patient Consulted On(melanie/time) 06/11/22 07:28 Date Seen by Provider: Jun 11, 2022 Time Seen by Provider: 07:30 History of Present Illness Ángel Garvey is a 87yo male whom presented to the ED due to swelling and redness of the right hand that is localized around his knuckles. Pt acquired an abrasion about 6 days ago that started as the initial lesion; Pt states that a scab formed and then was scrapped off while reaching for something in his pocket, he then claims that on or Saturday his hand started swelling and and erythematous. Two days ago pt noticed blisters forming around the flexor region of his elbow that seemed to burst yesterday morning and then developed redness and bruising in that area. Pt also noticed some drainage from Right Index Finger slightly distal to the knuckle where initial lesion was formed. States pain is about a 7/10 constant sharp pain that worsens with movement. Nothing seems to alleviate the pain. Pt denies radiation of pain. Pt endorses chills, hand warmth, and loss of hand ROM; Denies chest pain, palpitations, cough, SOB, N/V/D and Constipation, abdominal pain, and headache. Allergies and Home Medications Allergies Coded Allergies: No Known Drug Allergies (Unverified , 05/08/19) Patient Home Medication List Amlodipine Besylate (Amlodipine Besylate) 5 Mg Tablet, 5 MG PO DAILY, (Reported) Entered as Reported by: TOYIN TSAI on 06/11/22 1451 Last Action: Reviewed Apixaban (Eliquis) 5 Mg Tablet, 5 MG PO BID, (Reported) Entered as Reported by: SABINO HINES on 06/10/22 191 Last Action: Reviewed Aspirin (Aspirin EC) 81 Mg Tablet.dr, 81 MG PO HS, (Reported) Entered as Reported by: ALCON SALEEM on 03/29/21 0953 Last Action: Reviewed Atorvastatin Calcium (Atorvastatin Calcium) 10 Mg Tablet, 10 MG PO Q48H, (Reported) Entered as Reported by: TOYIN TSAI on 06/11/22 1452 Last Action: Reviewed Calcium Carbonate (Calcium) 600 Mg Calcium (1500 Mg) Tablet, 600 MG PO DAILY, (Reported) Entered as Reported by: TOYIN TSAI on 06/11/221451 Last Action: Reviewed Hydrochlorothiazide (Hydrochlorothiazide) 25 Mg Tablet, 25 MG PO DAILY, (Reported) Entered as Reported by: ALCON SALEEM on 03/29/21952 Last Action: Reviewed Losartan Potassium (Losartan Potassium) 100 Mg Tablet, 100 MG PO DAILY, (Reported) Entered as Reported by: ALCON SALEEM on 03/29/21954 Last Action: Reviewed Metformin HCl (Metformin HCl) 500 Mg Tablet, 500 MG PO DAILY, (Reported) Entered as Reported by: SABINO HINES on 06/10/221915 Last Action: Reviewed Metoprolol Succinate (Metoprolol Succinate) 200 Mg Tab.er.24h, 100 MG PO HS, (Reported) Entered as Reported by: ALCON SALEEM on 03/29/21952 Last Action: Reviewed Naproxen Sodium (Aleve) 220 Mg Tablet, 220 MG PO Q8H PRN for PAIN-MILD (1-4), (Reported) Entered as Reported by: ALCON SALEEM on 03/29/21952 Last Action: Reviewed [place]-3/Dha/Epa/Fish Oil (Fish Oil 1,000 mg Softgel) 1,000 Mg (120 Mg-180 Mg) Capsule, 1,000 MG PO DAILY, (Reported) Entered as Reported by: TOYIN TSAI on 06/11/221452 Last Action: Reviewed Discontinued Medications Amlodipine Besylate (Amlodipine Besylate) 10 Mg Tablet, 5 MG PO DAILY, (Reported) Discontinued Reason: Prescription changed Entered as Reported by: ALCON SALEEM on 03/29/21952 Last Action: Reviewed Past Vpgafol-Hqpdpy-Irwoko Hx Patient Social History Smoking Status: Never a Smoker Alcohol Use?: No Immunizations Up To Date Date of Pneumonia Vaccine: Feb 17, 2019 Date of Influenza Vaccine: Mar 19, 2022 Seasonal Allergies Seasonal Allergies: No Surgeries Surgeries: Abdominal (Hernia ), Pacemaker Respiratory History of Respiratory Disorde: No Cardiovascular History of Cardiac Disorders: Yes Cardiac Disorders: Atrial Fibrillation, Hypertension Neurological History of Neurological Disord: No Genitourinary History of Genitourinary Disor: No Gastrointestinal History of Gastrointestinal Di: No Musculoskeletal History of Musculoskeletal Dis: No 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 Hand swelling w/ associated erythema and warmth; R. Flexor Elbow region erythema and bruising ) Skin: other (R. Hand swelling w/ associated erythema and warmth; R. Flexor Elbow region erythema and bruising ) Psychiatric/Neurological: Denies Headache, Denies Numbness, Denies Tingling Physical Exam-General Problems Physical Exam Vital Signs Vital Signs - First Documented 06/10/22 06/10/22 06/10/22 12:58 20:32 23:18 Temp 37.4 Pulse 83 Resp 16 B/P (MAP) 142/79 (100) Pulse Ox 97 O2 Delivery Room Air O2 Flow Rate 0.00 FiO2 21 Capillary Refill : General Appearance: WD/WN, no apparent distress HEENT: PERRL/EOMI, pharynx normal Neck: non-tender, supple, normal inspection Respiratory: chest non-tender, lungs clear, normal breath sounds Cardiovascular: normal peripheral pulses, regular rate, rhythm Peripheral Pulses: 2+ Radial Pulses (R), 2+ Radial Pulses (L) Gastrointestinal: normal bowel sounds, non tender, soft Extremities: no calf tenderness, other (R. Hand swelling w/ associated erythema and warmth; Erythema radiates to Forearm and Medial Arm; R. Flexor Elbow region erythema and bruising; Associated Tenderness of R. Arm, R. Forearm, and R. Hand around knuckles and metacarpal region) Neurologic/Psychiatric: alert, normal mood/affect, oriented x 3 Skin: other (R. Hand swelling w/ associated erythema and warmth; Erythema radiates to Forearm and Medial Arm; R. Flexor Elbow region erythema and bruising ) Lymphatic: no adenopathy Data Review Labs Laboratory Tests 06/10/22 13:00: White Blood Count 19.8H, Red Blood Count 4.59, Hemoglobin 14.2, Hematocrit 41, Mean Corpuscular Volume 89, Mean Corpuscular Hemoglobin 31, Mean Corpuscular Hemoglobin Concent 35, Red Cell Distribution Width 13.7, Platelet Count 230, Mean Platelet Volume 10.3, Immature Granulocyte % (Auto) 1, Neutrophils (%) (Auto) 81H, Lymphocytes (%) (Auto) 10L, Monocytes (%) (Auto) 8, Eosinophils (%) (Auto) 0, Basophils (%) (Auto) 0, Neutrophils # (Auto) 16.1H, Lymphocytes # (Auto) 2.0, Monocytes # (Auto) 1.5H, Eosinophils # (Auto) 0.0, Basophils # (Auto) 0.1, Immature Granulocyte # (Auto) 0.1, Neutrophils % (Manual) 86, Lymphocytes % (Manual) 8, Monocytes % (Manual) 6, Erythrocyte Sedimentation Rate 61H, Prothrombin Time 17.2H, INR Comment 1.4, Activated Partial Thromboplast Time 35, D-Dimer 1.40H, Sodium Level 133L, Potassium Level 3.4L, Chloride Level 93L, Carbon Dioxide Level 25, Anion Gap 15H, Blood Urea Nitrogen 28H, Creatinine 1.18, Estimat Glomerular Filtration Rate 60, BUN/Creatinine Ratio 24, Glucose Level 243H, Lactic Acid Level 2.00, Calcium Level 9.5, Corrected Calcium 9.5, Total Bilirubin 1.3H, Aspartate Amino Transf (AST/SGOT) 20, Alanine Aminotransferase (ALT/SGPT) 17, Alkaline Phosphatase 87, C-Reactive Protein 17.04H, Total Protein 7.6, Albumin 4.0 06/10/22 19:54: Glucometer 330H 06/11/22 04:50: Glucometer 155H 06/11/22 05:00: White Blood Count 14.3H, Red Blood Count 3.77L, Hemoglobin 11.7L, Hematocrit 34L , Mean Corpuscular Volume 90, Mean Corpuscular Hemoglobin 31, Mean Corpuscular Hemoglobin Concent 35, Red Cell Distribution Width 13.5, Platelet Count 183, Mean Platelet Volume 10.5, Immature Granulocyte % (Auto) 1, Neutrophils (%) (Auto) 82H, Lymphocytes (%) (Auto) 9L, Monocytes (%) (Auto) 8, Eosinophils (%) (Auto) 0, Basophils (%) (Auto) 0, Neutrophils # (Auto) 11.6H, Lymphocytes # (Auto) 1.3, Monocytes # (Auto) 1.1H, Eosinophils # (Auto) 0.1, Basophils # (Auto) 0.1, Immature Granulocyte # (Auto) 0.1, Sodium Level 137, Potassium Level 2.9L, Chloride Level 103, Carbon Dioxide Level 23, Anion Gap 11, Blood Urea Nitrogen 23H, Creatinine 1.23, Estimat Glomerular Filtration Rate 57, BUN/Creatinine Ratio 19, Glucose Level 149H, Calcium Level 8.1L, Corrected Calcium 9.0, Total Bilirubin 1.3H, Aspartate Amino Transf (AST/SGOT) 21, Alanine Aminotransferase (ALT/SGPT) 19, Alkaline Phosphatase 55, Total Protein 5.7L, Albumin 2.9L Assessment/Plan Assessment/Plan Assessment/Plan R. Hand Cellullitis Hyperglycemia Leukocytosis Hypokalemia Soft Tissue Ultrasound of R. Hand IV Abx w/ MRSA Coverage Elevation of affected Limbs Pain Management HORACIO KNAPP DO 06/11/221944: History of Present Illness History of Present Illness History of Present Illness Consult requested for Right upper extremity/hand cellulitis. Patient is an 87 year old male that got a cut on his right 2nd finger. THis occured maybe 6 days ago. He had scab keep getting knocked off when working and putting hand in pocket. Patient states that Saturday his right hand began getting more swollen and erythematous. Having sharp pain and blisters up the arm. Pain moderate. Nothing making it better that he knows and nothing making it worse except movement. Patient with slightly decreased range of motion of right 2nd finer but minimal. Red raised blister at right antecubuital fossa. Tender. Started at blister and then tried to faltten it out with bandage. Still erytema around arm. Denies n/v fever sweats chills shortness of breath or chest pain. Allergies and Home Medications Allergies Coded Allergies: No Known Drug Allergies (Unverified , 05/08/19) Patient Home Medication List Home Medication List Reviewed: Yes Amlodipine Besylate (Amlodipine Besylate) 5 Mg Tablet, 5 MG PO DAILY, (Reported) Entered as Reported by: TOYIN TSAI on 06/11/22 1451 Last Action: Reviewed Apixaban (Eliquis) 5 Mg Tablet, 5 MG PO BID, (Reported) Entered as Reported by: SABINO HINES on 06/10/22 191 Last Action: Reviewed Aspirin (Aspirin EC) 81 Mg Tablet.dr, 81 MG PO HS, (Reported) Entered as Reported by: ALCON SALEEM on 03/29/21952 Last Action: Reviewed Atorvastatin Calcium (Atorvastatin Calcium) 10 Mg Tablet, 10 MG PO Q48H, (Reported) Entered as Reported by: TOYIN TSAI on 06/11/221451 Last Action: Reviewed Calcium Carbonate (Calcium) 600 Mg Calcium (1500 Mg) Tablet, 600 MG PO DAILY, (Reported) Entered as Reported by: TOYIN TSAI on 06/11/221451 Last Action: Reviewed Hydrochlorothiazide (Hydrochlorothiazide) 25 Mg Tablet, 25 MG PO DAILY, (Reported) Entered as Reported by: ALCON SALEEM on 03/29/21952 Last Action: Reviewed Losartan Potassium (Losartan Potassium) 100 Mg Tablet, 100 MG PO DAILY, (Reported) Entered as Reported by: ALCON SALEEM on 03/29/21954 Last Action: Reviewed Metformin HCl (Metformin HCl) 500 Mg Tablet, 500 MG PO DAILY, (Reported) Entered as Reported by: SABINO HINES on 06/10/221915 Last Action: Reviewed Metoprolol Succinate (Metoprolol Succinate) 200 Mg Tab.er.24h, 100 MG PO HS, (Reported) Entered as Reported by: ALCON SALEEM on 03/29/21952 Last Action: Reviewed Naproxen Sodium (Aleve) 220 Mg Tablet, 220 MG PO Q8H PRN for PAIN-MILD (1-4), (Reported) Entered as Reported by: ALCON SALEEM on 03/29/21952 Last Action: Reviewed [place]-3/Dha/Epa/Fish Oil (Fish Oil 1,000 mg Softgel) 1,000 Mg (120 Mg-180 Mg) Capsule, 1,000 MG PO DAILY, (Reported) Entered as Reported by: TOYIN TSAI on 06/11/221452 Last Action: Reviewed Discontinued Medications Amlodipine Besylate (Amlodipine Besylate) 10 Mg Tablet, 5 MG PO DAILY, (Reported) Discontinued Reason: Prescription changed Entered as Reported by: ALCON SALEEM on 03/29/21952 Last Action: Reviewed Past Xodedkv-Abczzy-Ehxcrt Hx Reviewed Nursing Assessment Reviewed/Agree w Nursing PMH: Yes Family Medical History Significant Family History: CAD Under 55 Years Old, CAD Over 55 Years Old, Diabetes, Hypertension Review of Systems-General Constitutional: chills; No fever EENTM: No blurred vision, No double vision Respiratory: No cough, No short of breath Cardiovascular: No chest pain, No palpitations Gastrointestinal: No abdominal pain, No constipation, No diarrhea, No nausea, No vomiting Genitourinary: No decreased output Musculoskeletal: No back pain; other (R. Hand swelling w/ associated erythema and warmth; R. Flexor Elbow region erythema and bruising ) Skin: change in color; No change in hair/nails; other (R. Hand swelling w/ associated erythema and warmth; R. Flexor Elbow region erythema and bruising ) Psychiatric/Neurological: Denies Anxiety, Denies Depressed, Denies Emotional Problems, Denies Headache, Denies Numbness, Denies Tingling All Other Systems Reviewed Negative Unless Noted: Yes (Negative excepted noted.) Physical Exam-General Problems Physical Exam General Appearance: WD/WN, no apparent distress HEENT: PERRL/EOMI, normal ENT inspection Neck: non-tender, supple Respiratory: chest non-tender, normal breath sounds Cardiovascular: regular rate, rhythm, no JVD Gastrointestinal: non tender, soft Rectal: deferred Back: no CVA tenderness, no vertebral tenderness Extremities: other (R. Hand swelling w/ associated erythema and warmth; Erythema move to Forearm and proximal Arm; R. Flexor Elbow region erythema and bruising; Associated Tenderness of R. Arm, R. Forearm, and R. Hand around knuckles and metacarpal region, right send finger slighlyt decreased range of motion) Neurologic/Psychiatric: alert, normal mood/affect, oriented x 3 Skin: warm/dry, other (R. Hand swelling w/ associated erythema and warmth; Erythema radiates to Forearm and Medial Arm; R. Flexor Elbow region erythema and bruising ) Lymphatic: no adenopathy Assessment/Plan Assessment/Plan Assessment/Plan R. Hand/upper extremity Cellullitis Hyperglycemia Leukocytosis Hypokalemia Soft Tissue Ultrasound of R. Hand IV Abx w/ MRSA Coverage Elevation of affected Limbs Pain Management Do not find abscess at this time Supervisory-Addendum Brief Verification & Attestation Participated in pt care: history, MDM, physical Personally performed: exam, history, MDM, supervision of care Care discussed with: Medical Student Procedures: n/a Results interpretation: Verified all documentation Verification and Attestation of Medical Student E/M Service A medical student performed and documented this service in my presence. I reviewed and verified all information documented by the medical student and made modifications to such information, when appropriate. I personally performed the physical exam and medical decision making. Horacio Knapp, Jun 11, 2022,19:50 ROCKY ARAMBULA Jun 11, 2022 07:37 HORACIO KNAPP DO Jun 11, 2022 19:45
[2022-06-11 07:45] VITALS: BP 123/69
[2022-06-11] MEDS: DOCUSATE SODIUM 100 MG (COLACE) CAP PO SCH ×2 (08:34→21:12)
[2022-06-11] MEDS: APIXABAN 5 MG (ELIQUIS) TABLET PO SCH ×2 (08:34→21:12)
--- NOTE | 2022-06-11 09:08 | History & Physical ---
CAREN SWANSON 06/11/22 0908: History of Present Illness History of Present Illness Reason for visit/HPI Patient is an 87yo M with PMH of A fib, pacemaker, DM2, and htn presenting with right hand swelling. Patient cut himself on the knuckle of his right index finger sometime in the last two weeks, patient is unsure what he cut it on or when he cut it. On 06/07/22 the area around that cut began to swell, became red, and was tender to touch. The patient noticed white puss coming out of the wound as well. The patient tried putting rubbing alcohol and hydrogen peroxide on the wound which did not improve the swelling or pain. The swelling became progressively worse and started to travel up the posterior side of his right hand. Yesterday he noticed his right inner elbow was swollen and red with red streaking from his elbow toward his shoulder. Patient denies any injury around his elbow. Patient was concerned the infection from his arm was spreading so he came to the emergency room. Patient had an elevated WBC, CRP, and D-dimer in the ER. He was admitted for cellulitis of right upper extremity. Patient reports that the right index finger and right inner elbow is tender to touch and hurts with movement. He says his pain is an 8/10 and is constant. Patient says he feels well otherwise. Date of Admission Jun 10, 2022 at 18:26 Date Seen by a Provider: Jun 11, 2022 Time Seen by a Provider: 10:00 I consulted on this patient on 06/11/22 08:54 Attending Physician Sheeba Yanez MD Admitting Physician Admitting Physician: Herminia Milton DO Attending Physician: Sheeba Yanez MD Consult Allergies and Home Medications Allergies Coded Allergies: No Known Drug Allergies (Unverified , 05/08/19) Patient Home Medication List Home Medication List Reviewed: Yes Amlodipine Besylate (Amlodipine Besylate) 10 Mg Tablet, 5 MG PO DAILY, (Reported) Entered as Reported by: ALCON SALEEM on 03/29/21 0982 Last Action: Reviewed Apixaban (Eliquis) 5 Mg Tablet, 1 EA PO BID, (Reported) Entered as Reported by: SABINO HINES on 06/10/22 191 Last Action: New Order Aspirin (Aspirin EC) 81 Mg Tablet.dr, 81 MG PO HS, (Reported) Entered as Reported by: ALCON SALEEM on 03/29/21952 Atorvastatin Calcium (Lipitor) 10 Mg Tablet, 10 MG PO DAILY Prescribed by: OWEN BOYER on 03/29/21 1100 Calcium Carbonate (Calcium) 500 Mg Tablet, 500 MG PO DAILY, (Reported) Entered as Reported by: ALCON SALEEM on 03/29/21952 Cinnamon Bark (Cinnamon) 500 Mg Capsule, 500 MG PO DAILY, (Reported) Entered as Reported by: ALCON SALEEM on 03/29/21952 Hydrochlorothiazide (Hydrochlorothiazide) 25 Mg Tablet, 25 MG PO DAILY, (Reported) Entered as Reported by: ALCON SALEEM on 03/29/21952 Last Action: Reviewed Losartan Potassium (Losartan Potassium) 100 Mg Tablet, 100 MG PO DAILY, (Reported) Entered as Reported by: ALCON SALEEM on 03/29/21954 Last Action: Reviewed Metformin HCl (Metformin HCl) 500 Mg Tablet, 500 MG PO DAILY, (Reported) Entered as Reported by: SABINO HINES on 06/10/221915 Last Action: New Order Metoprolol Succinate (Metoprolol Succinate) 200 Mg Tab.er.24h, 100 MG PO HS, (Reported) Entered as Reported by: ALCON SALEEM on 03/29/21952 Naproxen Sodium (Aleve) 220 Mg Tablet, 220 MG PO Q8H PRN for PAIN-MILD (1-4), (Reported) Entered as Reported by: ALCON SALEEM on 03/29/21952 Bon Aqua 3 Polyunsat Fatty Acids (Fish Oil 1,000 mg Capsule) 1,000 Mg Cap, 1,000 MG PO DAILY, (Reported) Entered as Reported by: ALCON SALEEM on 03/29/21952 Past [id number] Hx Patient Social History Marrital Status: Living Status: Lives with at home Employed/Student: retired Tobacco Use?: No Smoking Status: Never a Smoker Use of E-Cig and/or Vaping dev: No Substance use?: No Alcohol Use?: No Immunizations Up To Date Date of Influenza Vaccine: Mar 19, 2022 Date of Pneumonia Vaccine: Feb 17, 2019 Seasonal Allergies Seasonal Allergies: No Current Status Communicates: Verbally Primary Language: German Preferred Spoken Language: German Is interpretation needed?: No Sensory deficits: Vision impairment, Hearing impairment Past Medical History Surgeries: Abdominal (Inguinal hernia repair), Pacemaker Atrial Fibrillation, Hypertension Family Medical History No Pertinent Family Hx, CAD Under 55 Years Old, CAD Over 55 Years Old, Diabetes, Hypertension Review of Systems Constitutional: No chills, No dizziness, No fever, No weakness EENTM: No blurred vision, No vision loss, No nose congestion, No throat pain Respiratory: No cough, No phlegm, No short of breath Cardiovascular: No chest pain, No edema (Denies edema of lower extremities) Gastrointestinal: No abdominal pain, No constipation, No diarrhea, No nausea, No vomiting Genitourinary: No decreased output, No dysuria Musculoskeletal: No back pain, No muscle weakness Skin: other (Erythema over right index finger and right entecubital area) Psychiatric/Neurological: Denies Headache; Numbness (In right hand); Denies Tremors, Denies Weakness Physical Exam Vital Signs Vital Signs - First Documented 06/10/22 06/10/22 06/10/22 12:58 20:32 23:18 Temp 37.4 Pulse 83 Resp 16 B/P (MAP) 142/79 (100) Pulse Ox 97 O2 Delivery Room Air O2 Flow Rate 0.00 FiO2 21 Capillary Refill : Height, Weight, BMI Height: '" Weight: lbs. oz. kg; 36.40 BMI Method: General Appearance: No Apparent Distress, WD/WN Eyes: Bilateral Eye Normal Inspection HEENT: Moist Mucous Membranes Neck: Full Range of Motion Respiratory: Lungs Clear, Normal Breath Sounds, No Accessory Muscle Use, No Respiratory Distress Cardiovascular: Regular Rate, Rhythm, No Edema, Normal Peripheral Pulses (2+ Radial pulses bilaterally) Gastrointestinal: Non Tender, Soft Back: Normal Inspection Extremity: No Pedal Edema, Other (Right 2nd digit has swelling and erythema along posterior surface, there is a 1/2 cm wound near the 2nd MCP joint, no puss or exudate is coming out of the wound. Right antecubital area has 5cm area of swelling and erythema with red streraking traveling up the arm but does not reach the shoulder) Neurologic/Psychiatric: Alert, Oriented x3 Skin: Warm/Dry Assessment/Plan Assessment and Plan Cellulitis of right upper extremity - patient is on day 2 of IV vancomycin and IV Zosyn, the streaking and swelling is still present in the arm so IV antibiotics will be continued - surgery has been consulted - preliminary wound culture + for beta hemolytic group A streptococcus, current Abx will cover this bacteria - patient advised to elevate hand as much as possible to help decrease swelling Elevated D-dimer - most likely due to cellulitis which is causing an acute inflammatory response vs a DVT of the upper extremity Hypokalemia - 10mEq potassium chloride ordered, will continue to monitor labs Non-insulin dependent type 2 diabetes - AccuCheck ordered - patient put on a diabetic diet - insulin aspart on sliding scale has been ordered Atrial fibrillation - Eliquis 5mg 1xD restarted from home med list - patient is on telemetry Hypertension - metoprolol 100mg 1xD, amlodipine 5mg 1xD, HCTZ [id number], and losartan 100mg 1xD restarted from home med list Admission Diagnosis Admission Status: Inpatient Order (span 2 midnights) Reason for Inpatient Admission: Patient needs IV Abx to treat cellulitis. SHEEBA YANEZ MD 06/11/22 1207: Allergies and Home Medications Allergies Coded Allergies: No Known Drug Allergies (Unverified , 05/08/19) Patient Home Medication List Home Medication List Reviewed: Yes Amlodipine Besylate (Amlodipine Besylate) 10 Mg Tablet, 5 MG PO DAILY, (Re ported) Entered as Reported by: ALCON SALEEM on 03/29/21952 Last Action: Reviewed Apixaban (Eliquis) 5 Mg Tablet, 1 EA PO BID, (Reported) Entered as Reported by: SABINO HINES on 06/10/221915 Last Action: New Order Aspirin (Aspirin EC) 81 Mg Tablet.dr, 81 MG PO HS, (Reported) Entered as Reported by: ALCON SALEEM on 03/29/21952 Atorvastatin Calcium (Lipitor) 10 Mg Tablet, 10 MG PO DAILY Prescribed by: OWEN BOYER on 03/29/21 1100 Calcium Carbonate (Calcium) 500 Mg Tablet, 500 MG PO DAILY, (Reported) Entered as Reported by: ALCON SALEEM on 03/29/21952 Cinnamon Bark (Cinnamon) 500 Mg Capsule, 500 MG PO DAILY, (Reported) Entered as Reported by: ALCON SALEEM on 03/29/21952 Hydrochlorothiazide (Hydrochlorothiazide) 25 Mg Tablet, 25 MG PO DAILY, (Reported) Entered as Reported by: ALCON SALEEM on 03/29/21952 Last Action: Reviewed Losartan Potassium (Losartan Potassium) 100 Mg Tablet, 100 MG PO DAILY, (Reported) Entered as Reported by: ALCON SALEEM on 03/29/21954 Last Action: Reviewed Metformin HCl (Metformin HCl) 500 Mg Tablet, 500 MG PO DAILY, (Reported) Entered as Reported by: SABINO HINES on 06/10/221915 Last Action: New Order Metoprolol Succinate (Metoprolol Succinate) 200 Mg Tab.er.24h, 100 MG PO HS, (Reported) Entered as Reported by: ALCON SALEEM on 03/29/21952 Naproxen Sodium (Aleve) 220 Mg Tablet, 220 MG PO Q8H PRN for PAIN-MILD (1-4), (Reported) Entered as Reported by: ALCON SALEEM on 03/29/21952 Bon Aqua 3 Polyunsat Fatty Acids (Fish Oil 1,000 mg Capsule) 1,000 Mg Cap, 1,000 MG PO DAILY, (Reported) Entered as Reported by: ALCON SALEEM on 03/29/21952 Review of Systems Constitutional: no symptoms reported; No chills, No fever, No weakness EENTM: no symptoms reported Respiratory: no symptoms reported; No cough, No phlegm, No short of breath Cardiovascular: no symptoms reported; No chest pain, No edema (Denies edema of lower extremities), No palpitations Gastrointestinal: no symptoms reported; No abdominal pain, No constipation, No diarrhea, No nausea, No vomiting Genitourinary: no symptoms reported Musculoskeletal: joint pain (Right UE) Skin: other (Erythema over right index finger and right entecubital area) Psychiatric/Neurological: Numbness (In right hand) Physical Exam General Appearance: No Apparent Distress, WD/WN HEENT: PERRL/EOMI Neck: Full Range of Motion, Supple Respiratory: Chest Non Tender, Lungs Clear, Normal Breath Sounds, No Accessory Muscle Use, No Respiratory Distress Cardiovascular: Regular Rate, Rhythm, No Edema Gastrointestinal: Normal Bowel Sounds, Non Tender, Soft Back: Normal Inspection Extremity: No Pedal Edema, Other (Right 2nd digit has swelling and erythema along posterior surface, there is a 1/2 cm wound near the 2nd MCP joint, no puss or exudate is coming out of the wound. Right antecubital area has 5cm area of swelling and erythema with red streraking traveling up the arm but does not reach the shoulder) Neurologic/Psychiatric: Alert, Oriented x3, Other (Decreased ROM in right hand due to swelling) Assessment/Plan Admission Diagnosis Admission Status: Inpatient Order (span 2 midnights) Reason for Inpatient Admission: High risk for worsening infection if not on IV antibiotics and close monitoring Supervisory-Addendum Brief Verification & Attestation Participated in pt care: history, physical Personally performed: exam, history Care discussed with: Medical Student Procedures: n/a Verification and Attestation of Medical Student E/M Service A medical student performed and documented this service in my presence. I reviewed and verified all information documented by the medical student and made modifications to such information, when appropriate. I personally performed the physical exam and medical decision making. Sheeba Yanez, Jun 11, 2022,12:09 CAREN SWANSON Jun 11, 2022 09:08 SHEEBA YANEZ MD Jun 11, 2022 12:09
[2022-06-11 11:44] VITALS: BP 127/62
[2022-06-11] MEDS ORDERED: KCL 20 MEQ TAB (K-DUR) PO NR (12:15)
[2022-06-11] MEDS: ceFAZolin INJECTION 2,000 MG in NS (IVPB) 50 ML IV SCH ×2 (14:47→21:13)
[2022-06-11] MEDS ORDERED: AMLO-250 PO (14:51)
[2022-06-11] MEDS ORDERED: ATOR10TA66 PO (14:52)
[2022-06-11] MEDS ORDERED: CALC600T91 PO (14:52)
[2022-06-11] MEDS ORDERED: OMEG100032 PO (14:53)
[2022-06-11] MEDS ORDERED: VANCOMYCIN 1250 MG/NS 250 ML IVPB IV SCH ×2 (15:00)
[2022-06-11 16:02] VITALS: BP 121/69
[2022-06-11 19:23] VITALS: BP 155/95
[2022-06-12] VITALS (7 sets, daily range): BP systolic 112–136; BP diastolic 62–74
[2022-06-12 05:12] LABS: BASOPHILS # (AUTO) 0.1 10^3/uL (0.0-0.1); BASOPHILS % (AUTO) 0 % (0-10); EOSINOPHILS # (AUTO) 0.2 10^3/uL (0.0-0.3); EOSINOPHILS % (AUTO) 1 % (0-10); HEMATOCRIT 33 % (40-54); HEMOGLOBIN 11.6 g/dL (13.3-17.7); LYMPHOCYTES # (AUTO) 1.3 10^3/uL (1.0-4.0); LYMPHOCYTES % (AUTO) 10 % (12-44); MEAN CORPUSCULAR HEMOGLOBIN 31 pg (25-34); MEAN CORPUSCULAR HGB CONC 35 g/dL (32-36); MEAN CORPUSCULAR VOLUME 89 fL (80-99); MEAN PLATELET VOLUME 10.3 fL (9.0-12.2); MONOCYTES # (AUTO) 0.9 10^3/uL (0.0-1.0); MONOCYTES % (AUTO) 7 % (0-12); NEUTROPHILS # (AUTO) 10.1 10^3/uL (1.8-7.8); NEUTROPHILS % (AUTO) 81 % (42-75); PLATELET COUNT 176 10^3/uL (130-400); WHITE BLOOD COUNT 12.6 10^3/uL (4.3-11.0)
[2022-06-12 05:21] LABS: ALBUMIN 2.9 GM/DL (3.2-4.5)
[2022-06-12 05:22] LABS: CALCIUM 7.7 MG/DL (8.5-10.1)
[2022-06-12 05:23] LABS: TOTAL PROTEIN 5.8 GM/DL (6.4-8.2)
[2022-06-12 05:25] LABS: BILIRUBIN,TOTAL 0.9 MG/DL (0.1-1.0)
[2022-06-12 05:27] LABS: CREATININE SERUM 1.03 MG/DL (0.60-1.30)
[2022-06-12] MEDS: inSUlin ASPART (NovoLOG) 1 UNIT/0.01 ML (CHARGE PER UNIT) SC SCH ×4 (05:30→20:16)
[2022-06-12] MEDS: ceFAZolin INJECTION 2,000 MG in NS (IVPB) 50 ML IV SCH ×3 (05:32→22:32)
--- NOTE | 2022-06-12 06:37 | Progress Note - Surgery ---
ROCKY ARAMBULA 06/12/22 0637: Subjective Date Seen by a Provider: Jun 12, 2022 Time Seen by a Provider: 06:00 Subjective/Events-last exam Pt was laying in bed comfortable sleeping before entering the room. Pt was accompanied by whom was sleeping in the chair. Pt states that he feels better than yesterday and has slightly increased range of motion of R. hand; Pt notes there has been some improvement of erythema since yesterday. Pt will receive and US venous upper extremity this morning. Pt does state that there has been some numbness of his finger on the right side. Pt denies SAAVEDRA, Fever and Chills, chest pain, palpitations, Cough, SOB, and N/V/D. Review of Systems General: No Chills HEENT: No Head Aches Pulmonary: No Dyspnea, No Cough Cardiovascular: No: Chest Pain, Palpitations Gastrointestinal: No: Nausea, Vomiting, Abdominal Pain, Diarrhea Neurological: Numbness (R. Fingers ) Focused Exam Lactate Level 06/10/22 13:00: Lactic Acid Level 2.00 Objective Exam Vital Signs Date Time Temp Pulse Resp B/P (MAP) Pulse Ox O2 Delivery O2 Flow Rate FiO2 06/12/22 03:38 36.6 58 16 112/66 (81) 92 Room Air 06/12/22 01:00 60 06/12/22 00:19 37.0 58 16 133/74 (93) 96 Room Air 06/11/22 20:55 Room Air 06/11/22 19:23 36.9 62 18 155/95 (115) 93 Room Air 06/11/22 19:00 60 06/11/22 16:02 37.9 61 18 121/69 (86) 96 Room Air 06/11/22 13:46 60 06/11/22 11:44 37.2 60 18 127/62 (83) 95 Room Air 06/11/22 08:00 93 Room Air 06/11/22 07:45 37.0 61 19 123/69 (87) 93 Room Air 06/11/22 07:25 93 Room Air 0.00 06/11/22 07:09 61 I & O 06/12/22 07:00 Intake Total 3330 ml Balance 3330 ml Capillary Refill : General Appearance: No Apparent Distress, WD/WN HEENT: PERRL/EOMI Neck: Full Range of Motion, Supple Respiratory: Chest Non Tender, Lungs Clear, Normal Breath Sounds, No Accessory Muscle Use, No Respiratory Distress Cardiovascular: Regular Rate, Rhythm, No Edema Peripheral Pulses: 2+ Radial Pulses (R), 2+ Radial Pulses (L) Gastrointestinal: normal bowel sounds, non tender, soft Extremity: No Pedal Edema, Other (Improved Erythema of R. Hand aorund knuckles; Swelling still seems to be prominent but has improved; Lack of drainage of 1/2cm lesion on R. index finger; R. Antecubital region presenets with purulent drainage; Seems like a blister in that region burst; Improved erythema radiating up the forearm and arm.) Neurologic/Psychiatric: Alert, Oriented x3, Other (Imroved ROM in right hand, but still restricted ) Skin: Warm/Dry Results Lab Laboratory Tests 06/11/22 10:56: Glucometer 256H 06/11/22 15:57: Glucometer 246H 06/11/22 20:02: Glucometer 267H 06/12/22 04:56: White Blood Count 12.6H, Red Blood Count 3.74L, Hemoglobin 11.6L, Hematocrit 33L , Mean Corpuscular Volume 89, Mean Corpuscular Hemoglobin 31, Mean Corpuscular Hemoglobin Concent 35, Red Cell Distribution Width 13.6, Platelet Count 176, Mean Platelet Volume 10.3, Immature Granulocyte % (Auto) 1, Neutrophils (%) (Auto) 81H, Lymphocytes (%) (Auto) 10L, Monocytes (%) (Auto) 7, Eosinophils (%) (Auto) 1, Basophils (%) (Auto) 0, Neutrophils # (Auto) 10.1H, Lymphocytes # (Auto) 1.3, Monocytes # (Auto) 0.9, Eosinophils # (Auto) 0.2, Basophils # (Auto) 0.1, Immature Granulocyte # (Auto) 0.1, Sodium Level 136, Potassium Level 3.0L, Chloride Level 106, Carbon Dioxide Level 20L, Anion Gap 10, Blood Urea Nitrogen 16, Creatinine 1.03, Estimat Glomerular Filtration Rate 70, BUN/Creatinine Ratio 16, Glucose Level 158H, Calcium Level 7.7L, Corrected Calcium 8.6, Total Bilirubin 0.9, Aspartate Amino Transf (AST/SGOT) 40H, Alanine Aminotransferase (ALT/SGPT) 34, Alkaline Phosphatase 63, Total Protein 5.8L, Albumin 2.9L Microbiology 06/10/22 Blood Culture - Preliminary, Resulted No growth 06/10/22 Gram Stain, Resulted Pending 06/10/22 Wound Culture - Preliminary, Resulted Strep, Beta Hemolytic Group A Assessment/Plan Assessment/Plan Assessment/Plan R. Hand/upper extremity Cellullitis Hyperglycemia Leukocytosis Hypokalemia US venous upper extremity ordered; R/o Superficial Thrombophlebitis; If indicated, will consider anticoagulation therapy by assessing risks and benefits, as-well as characterization of thrombu if present IV Abx w/ MRSA Coverage Elevation of affected Limbs Pain Management MOSES WHITTAKER DO 06/13/22 1831: Subjective Subjective/Events-last exam Patient doing better. Erythema and range of motion improving. Wbc decreasing. Denies n/v fever sweats chills shortness of breath or chest pain. Objective Exam General Appearance: No Apparent Distress, WD/WN HEENT: PERRL/EOMI, Normal ENT Inspection Neck: Full Range of Motion, Non Tender Respiratory: Chest Non Tender, No Accessory Muscle Use, No Respiratory Distress Cardiovascular: Regular Rate, Rhythm, No JVD Gastrointestinal: non tender, soft Extremity: Other (Improved Erythema of R. Hand aorund knuckles; Swelling still seems to be prominent but has improved; Lack of drainage of 1/2cm lesion on R. index finger; R. Antecubital region presenets with scant bloody drainage; ; Improved erythema right forearm and arm.) Neurologic/Psychiatric: Alert, Oriented x3, Other (Imroved ROM in right hand, 2nd finger minimal decreased flexion) Skin: Warm/Dry Lymphatic: No Adenopathy Assessment/Plan Assessment/Plan Assessment/Plan R. Hand/upper extremity Cellullitis Hyperglycemia Leukocytosis Hypokalemia US venous upper extremity ordered await results IV Abx w/ MRSA Coverage Elevation of affected Limbs Pain Management Feel this will continue to improve without surgical intervention Supervisory-Addendum Brief Verification & Attestation Participated in pt care: history, MDM, physical Personally performed: exam, history, MDM, supervision of care Care discussed with: Medical Student Procedures: n/a Results interpretation: Verified all documentation Verification and Attestation of Medical Student E/M Service A medical student performed and documented this service in my presence. I reviewed and verified all information documented by the medical student and made modifications to such information, when appropriate. I personally performed the physical exam and medical decision making. Moses Whittaker, Jun 12, 2022,18:34 ROCKY ARAMBULA Jun 12, 2022 06:37 MOSES WHITTAKER DO Jun 13, 2022 18:31
[2022-06-12] MEDS: KCL 20 MEQ TAB (K-DUR) PO SCH ×2 (08:27→20:05)
[2022-06-12] MEDS: APIXABAN 5 MG (ELIQUIS) TABLET PO SCH ×2 (08:27→20:05)
[2022-06-12] MEDS: amLODIPine 5 MG (NORVASC) TAB PO SCH (08:27)
[2022-06-12] MEDS: NS IV 1000 ML 1,000 ML IV SCH ×2 (08:28→20:05)
[2022-06-12] MEDS: DOCUSATE SODIUM 100 MG (COLACE) CAP PO SCH ×2 (08:28→20:05)
[2022-06-12] MEDS ORDERED: AtorvaSTATin TABLET 10 MG TABLET PO SCH (09:00)
--- NOTE | 2022-06-12 10:46 | Progress Note ---
Subjective Date Seen by a Provider: Jun 12, 2022 Time Seen by a Provider: 09:00 Subjective/Events-last exam Patient was sitting in a chair finishing his breakfast at the start of the interview. Reports he is still having some pain in his right hand where the swelling is and rates it a 6/10. Has been elevating his hand on the bedside table whenever he is resting. Patient feels like he has better range of motion with his right hand this morning. Besides the pain in his hand, the patient reports he is feeling well. Denies headache, chest pain, shortness of breath, abdominal pain, nausea, vomiting, and diarrhea. Review of Systems General: No Chills, No Fatigue; Appetite HEENT: No Head Aches, No Sinus Congestion, No Sore Throat Pulmonary: No Cough Cardiovascular: No: Chest Pain, Palpitations, Edema, Lt Headedness Gastrointestinal: No: Nausea, Vomiting, Abdominal Pain, Diarrhea, Constipation Genitourinary: No Dysuria, No Frequency Neurological: No: Weakness Focused Exam Lactate Level 06/10/22 13:00: Lactic Acid Level 2.00 Objective Exam Last Set of Vital Signs Vital Signs Date Time Temp Pulse Resp B/P (MAP) Pulse Ox O2 Delivery O2 Flow Rate FiO2 06/12/22 08:00 95 Room Air 06/12/22 07:29 36.4 60 18 127/67 (87) 06/11/22 07:25 0.00 06/10/22 20:32 21 Capillary Refill : I&O Intake and Output 06/12/22 00:00 Intake Total 3330 ml Output Total 200 ml Balance 3130 ml Intake Oral 1070 ml IV Total 2260 ml Output Urine Total 200 ml # Voids 3 General: Alert, Oriented X3, Cooperative, No Acute Distress HEENT: Mucous Memb Moist/[place] Lungs: Clear to Auscultation, Normal Air Movement Heart: Regular Rate, No Murmurs Abdomen: Soft, No Tenderness Extremities: No Clubbing, No Edema (in lower extremities), Normal Pulses (Bilateral 2+ radial pulses) Skin: Other (Right hand has swelling and erythema around 2nd digit and posterior hand, antecubital area has swelling and erythema as well, there is less swelling compared to yesterday) Neuro: Normal Speech, Normal Tone Psych/Mental Status: Mental Status NL, Mood NL Results Lab Laboratory Tests 06/11/22 10:56: Glucometer 256H 06/11/22 15:57: Glucometer 246H 06/11/22 20:02: Glucometer 267H 06/12/22 04:56: White Blood Count 12.6H, Red Blood Count 3.74L, Hemoglobin 11.6L, Hematocrit 33L , Mean Corpuscular Volume 89, Mean Corpuscular Hemoglobin 31, Mean Corpuscular Hemoglobin Concent 35, Red Cell Distribution Width 13.6, Platelet Count 176, Mean Platelet Volume 10.3, Immature Granulocyte % (Auto) 1, Neutrophils (%) (Auto) 81H, Lymphocytes (%) (Auto) 10L, Monocytes (%) (Auto) 7, Eosinophils (%) (Auto) 1, Basophils (%) (Auto) 0, Neutrophils # (Auto) 10.1H, Lymphocytes # (Auto) 1.3, Monocytes # (Auto) 0.9, Eosinophils # (Auto) 0.2, Basophils # (Auto) 0.1, Immature Granulocyte # (Auto) 0.1, Sodium Level 136, Potassium Level 3.0L, Chloride Level 106, Carbon Dioxide Level 20L, Anion Gap 10, Blood Urea Nitrogen 16, Creatinine 1.03, Estimat Glomerular Filtration Rate 70, BUN/Creatinine Ratio 16, Glucose Level 158H, Calcium Level 7.7L, Corrected Calcium 8.6, Total Bilirubin 0.9, Aspartate Amino Transf (AST/SGOT) 40H, Alanine Aminotransferase (ALT/SGPT) 34, Alkaline Phosphatase 63, Total Protein 5.8L, Albumin 2.9L Microbiology 06/10/22 Blood Culture - Preliminary, Resulted No growth 06/10/22 Gram Stain - Final, Resulted 06/10/22 Wound Culture - Preliminary, Resulted Strep, Beta Hemolytic Group A Assessment/Plan Assessment/Plan Assess & Plan/Chief Complaint Cellulitis of right upper extremity - patient is on day 3 of IV vancomycin and IV Zosyn, the streaking and swelling has improved but is still present, IV antibiotics will be continued - surgery has been consulted - US of upper extremity is being done today to rule out superficial thrombophlebitis - preliminary wound culture + for beta hemolytic group A streptococcus, current Abx will cover this bacteria - patient advised to elevate hand as much as possible to help decrease swelling Elevated D-dimer - most likely due to cellulitis which is causing an acute inflammatory response - US of upper extremity is being done today to rule out superficial thrombophlebitis Hypokalemia - potassium is still low after receiving 40mEq of KCl, another 40mEq will be ordered Non-insulin dependent type 2 diabetes - AccuCheck ordered - patient put on a diabetic diet - insulin aspart on sliding scale has been ordered Atrial fibrillation - Eliquis 5mg 1xD restarted from home med list - patient is on telemetry Hypertension - metoprolol 100mg 1xD, amlodipine 5mg 1xD, HCTZ [id number], and losartan 100mg 1xD restarted from home med list Clinical Quality Measures Admission Status Admission Dx Cellulitis of right upper extremity - patient is on day 2 of IV vancomycin and IV Zosyn, the streaking and swelling is still present in the arm so IV antibiotics will be continued - surgery has been consulted - preliminary wound culture + for beta hemolytic group A streptococcus, current Abx will cover this bacteria - patient advised to elevate hand as much as possible to help decrease swelling Elevated D-dimer - most likely due to cellulitis which is causing an acute inflammatory response vs a DVT of the upper extremity Hypokalemia - 10mEq potassium chloride ordered, will continue to monitor labs Non-insulin dependent type 2 diabetes - AccuCheck ordered - patient put on a diabetic diet - insulin aspart on sliding scale has been ordered Atrial fibrillation - Eliquis 5mg 1xD restarted from home med list - patient is on telemetry Hypertension - metoprolol 100mg 1xD, amlodipine 5mg 1xD, HCTZ [id number], and losartan 100mg 1xD restarted from home med list CAREN SWANSON Jun 12, 2022 10:46
[2022-06-12] MEDS ORDERED: TROUGH ORDER-PHARMACY XX NR (14:00)
--- NOTE | 2022-06-12 15:42 | Diagnostic Imaging Report ---
INDICATION: Cellulitis, abscess, pain. COMPARISON: None available. TECHNIQUE: Right upper extremity venous Doppler ultrasound performed on 06/12/2022. FINDINGS: Normal flow, compression, and augmentation within the visualized deep venous structures of the right upper extremity. Additionally, normal flow and compression within the right jugular vein. Minimal subcutaneous edema is noted within the right arm within the region of clinical concern without evidence of a drainable focal fluid collection. IMPRESSION: No evidence of deep venous thrombosis within the right upper extremity. Minimal edema within the right arm within the region of clinical concern without focal drainable fluid collection. Dictated by: Dictated on workstation # [id number]
[2022-06-12] MEDS ORDERED: ASPIRIN E.C. 81 MG (ECOTRIN) TAB PO SCH (21:00)
[2022-06-13 03:06] VITALS: BP 119/70
[2022-06-13] MEDS: ceFAZolin INJECTION 2,000 MG in NS (IVPB) 50 ML IV SCH ×2 (05:20→12:18)
[2022-06-13 05:44] LABS: BASOPHILS # (AUTO) 0.1 10^3/uL (0.0-0.1); BASOPHILS % (AUTO) 1 % (0-10); EOSINOPHILS # (AUTO) 0.3 10^3/uL (0.0-0.3); EOSINOPHILS % (AUTO) 3 % (0-10); HEMATOCRIT 35 % (40-54); HEMOGLOBIN 11.6 g/dL (13.3-17.7); LYMPHOCYTES # (AUTO) 1.4 10^3/uL (1.0-4.0); LYMPHOCYTES % (AUTO) 15 % (12-44); MEAN CORPUSCULAR HEMOGLOBIN 30 pg (25-34); MEAN CORPUSCULAR HGB CONC 34 g/dL (32-36); MEAN CORPUSCULAR VOLUME 91 fL (80-99); MEAN PLATELET VOLUME 10.4 fL (9.0-12.2); MONOCYTES # (AUTO) 0.7 10^3/uL (0.0-1.0); MONOCYTES % (AUTO) 7 % (0-12); NEUTROPHILS # (AUTO) 7.3 10^3/uL (1.8-7.8); NEUTROPHILS % (AUTO) 74 % (42-75); PLATELET COUNT 208 10^3/uL (130-400); WHITE BLOOD COUNT 9.8 10^3/uL (4.3-11.0)
[2022-06-13 05:54] LABS: POTASSIUM 3.4 MMOL/L (3.6-5.0)
[2022-06-13 05:55] LABS: CALCIUM 7.7 MG/DL (8.5-10.1)
[2022-06-13 05:58] LABS: BILIRUBIN,TOTAL 0.8 MG/DL (0.1-1.0)
[2022-06-13 06:00] LABS: CREATININE SERUM 0.92 MG/DL (0.60-1.30)
[2022-06-13] MEDS: inSUlin ASPART (NovoLOG) 1 UNIT/0.01 ML (CHARGE PER UNIT) SC SCH ×2 (06:06→11:34)
[2022-06-13 07:14] VITALS: BP 119/70
--- NOTE | 2022-06-13 08:44 | Progress Note - Surgery ---
RADHA ARAMBULAEB 06/13/22 0844: Subjective Date Seen by a Provider: Jun 13, 2022 Time Seen by a Provider: 06:15 Subjective/Events-last exam Pt was laying in bed sleep before interview w/o presence of or daughter. Pt states that he is feeling a lot better compared to previous couple days. Pt states he has improved ROM of R. fingers and notes less redness of his R. hand. Pt is tolerating pain at this time. Pt denies fever, chills, chest pain, palpitations, SOB, abdominal pain, and N/V/D. Review of Systems General: No Chills Pulmonary: No Dyspnea, No Cough Cardiovascular: No: Chest Pain, Palpitations Gastrointestinal: No: Nausea, Vomiting, Abdominal Pain, Diarrhea Musculoskeletal: arm pain (Minimal forearm pain), hand pain (minimal ) Focused Exam Lactate Level 06/10/22 13:00: Lactic Acid Level 2.00 Objective Exam Vital Signs Date Time Temp Pulse Resp B/P (MAP) Pulse Ox O2 Delivery O2 Flow Rate FiO2 06/13/22 07:14 36.5 62 93 06/13/22 07:14 Room Air 06/13/22 07:00 60 06/13/22 03:06 36.5 62 20 119/70 (86) 93 Room Air 06/13/22 01:00 60 06/12/22 23:45 37.1 60 20 117/67 (84) 94 Room Air 06/12/22 20:21 95 Room Air 06/12/22 20:01 37.1 60 18 126/70 (88) 94 Room Air 06/12/22 19:00 90 06/12/22 15:27 37.0 60 20 121/62 (81) 95 Room Air 06/12/22 13:11 68 06/12/22 11:29 36.2 62 18 136/72 (93) Room Air I & O 06/13/22 07:00 Intake Total 2880 ml Balance 2880 ml Capillary Refill : General Appearance: No Apparent Distress, WD/WN HEENT: PERRL/EOMI Neck: Full Range of Motion, Supple Respiratory: Chest Non Tender, Lungs Clear, Normal Breath Sounds, No Accessory Muscle Use, No Respiratory Distress Cardiovascular: Regular Rate, Rhythm, No Edema Peripheral Pulses: 2+ Radial Pulses (R), 2+ Radial Pulses (L) Gastrointestinal: normal bowel sounds, non tender, soft Extremity: No Pedal Edema, Other (Improved Erythema of R. Hand around knuckles; Improved edema of R. Hand- minimal; Lack of drainage of 1/2cm lesion on R. index finger; R. Antecubital region presents with blister; Improving erythema radiating up the forearm and arm- minimal to none) Neurologic/Psychiatric: Alert, Oriented x3, Other (Imroved ROM in right hand) Skin: Warm/Dry Results Lab Laboratory Tests 06/12/22 11:00: Glucometer 205H 06/12/22 16:03: Glucometer 232H 06/12/22 20:10: Glucometer 233H 06/13/22 05:05: Glucometer 125H 06/13/22 05:06: White Blood Count 9.8, Red Blood Count 3.81L, Hemoglobin 11.6L, Hematocrit 35L, Mean Corpuscular Volume 91, Mean Corpuscular Hemoglobin 30, Mean Corpuscular Hemoglobin Concent 34, Red Cell Distribution Width 13.6, Platelet Count 208, Mean Platelet Volume 10.4, Immature Granulocyte % (Auto) 1, Neutrophils (%) (Auto) 74, Lymphocytes (%) (Auto) 15, Monocytes (%) (Auto) 7, Eosinophils (%) (Auto) 3, Basophils (%) (Auto) 1, Neutrophils # (Auto) 7.3, Lymphocytes # (Auto) 1.4, Monocytes # (Auto) 0.7, Eosinophils # (Auto) 0.3, Basophils # (Auto) 0.1, Immature Granulocyte # (Auto) 0.1, Sodium Level 139, Potassium Level 3.4L, Chloride Level 108H, Carbon Dioxide Level 20L, Anion Gap 11, Blood Urea Nitrogen 12, Creatinine 0.92, Estimat Glomerular Filtration Rate 81, BUN/Creatinine Ratio 13, Glucose Level 121H, Calcium Level 7.7L, Corrected Calcium 8.5, Total Bilirubin 0.8, Aspartate Amino Transf (AST/SGOT) 54H, Alanine Aminotransferase (ALT/SGPT) 40, Alkaline Phosphatase 74, Total Protein 6.0L, Albumin 3.0L Microbiology 06/10/22 Blood Culture - Preliminary, Resulted No growth 06/10/22 Gram Stain - Final, Resulted 06/10/22 Wound Culture - Preliminary, Resulted Streptococcus pyogenes Grp A Assessment/Plan Assessment/Plan Assessment/Plan R. Hand/upper extremity Cellullitis Hyperglycemia Leukocytosis Hypokalemia US venous upper extremity 14; No evidence of deep venous thrombosis within the right upper extremity. Minimal edema within the right arm within the region of clinical concern without focal drainable fluid collection. IV Abx w/ MRSA Coverage Elevation of affected Limbs Continue Pain Management HORACIO KNAPP DO 06/13/22 1843: Subjective Subjective/Events-last exam Continues to improve. Better range of motion of 2nd right finger. Erythema on right upper extremity continues to improve. No new complaints. Denies n/v fever sweats chills shortness of breath or chest pain. Objective Exam General Appearance: No Apparent Distress, WD/WN HEENT: PERRL/EOMI, Normal ENT Inspection Neck: Normal Inspection, Non Tender Respiratory: Chest Non Tender, No Accessory Muscle Use, No Respiratory Distress Cardiovascular: Regular Rate, Rhythm, No JVD Gastrointestinal: non tender, soft Extremity: Other (Improved Erythema of R. Hand around knuckles; Improved edema of R. Hand- minimal; Lack of drainage of 1/2cm lesion on R. index finger; R. Antecubital region presents with blister; Improving erythema up the forearm and arm- minimal to none) Neurologic/Psychiatric: Alert, Oriented x3, Other (Imroved ROM in right hand) Skin: Warm/Dry Lymphatic: No Adenopathy Assessment/Plan Assessment/Plan Assessment/Plan R. Hand/upper extremity Cellullitis Hyperglycemia Leukocytosis Hypokalemia US venous upper extremity 14; No evidence of deep venous thrombosis within the right upper extremity. Minimal edema within the right arm within the region of clinical concern without focal drainable fluid collection. IV Abx w/ MRSA Coverage Elevation of affected Limbs Continues to improve. Home soon, just needs to continue to monitor and any worsening be reevaluated. Supervisory-Addendum Brief Verification & Attestation Participated in pt care: history, MDM, physical Personally performed: exam, history, MDM, supervision of care Care discussed with: Medical Student Procedures: n/a Results interpretation: Verified all documentation Verification and Attestation of Medical Student E/M Service A medical student performed and documented this service in my presence. I reviewed and verified all information documented by the medical student and made modifications to such information, when appropriate. I personally performed the physical exam and medical decision making. Yamila Nassarb 15, 2023,18:43 ROCKY ARAMBULA Jun 13, 2022 08:44 HORACIO KNAPP DO Jun 13, 2022 18:43
[2022-06-13 08:50] VITALS: BP 130/75
[2022-06-13] MEDS: NS IV 1000 ML 1,000 ML IV SCH (09:23)
[2022-06-13] MEDS: DOCUSATE SODIUM 100 MG (COLACE) CAP PO SCH (09:24)
[2022-06-13] MEDS: KCL 20 MEQ TAB (K-DUR) PO SCH (09:25)
[2022-06-13] MEDS: amLODIPine 5 MG (NORVASC) TAB PO SCH (09:25)
[2022-06-13] MEDS: APIXABAN 5 MG (ELIQUIS) TABLET PO SCH (09:25)
[2022-06-13] MEDS ORDERED: CEPH500T PO (11:21)
--- NOTE | 2022-06-13 11:22 | Discharge Summary ---
Discharge [facility] Reconcile Patient Problems Problems Reviewed?: Yes Discharge Medications New, Converted or Re-Newed RX: Transmitted to Pharmacy New Medications: Cephalexin (Cephalexin) 500 Mg Tablet 500 MG PO TID for 6 Days, #18 TAB Continued Medications: Amlodipine Besylate (Amlodipine Besylate) 5 Mg Tablet 5 MG PO DAILY, TAB Apixaban (Eliquis) 5 Mg Tablet 5 MG PO BID Aspirin (Aspirin EC) 81 Mg Tablet.dr 81 MG PO HS, TAB Atorvastatin Calcium (Atorvastatin Calcium) 10 Mg Tablet 10 MG PO Q48H, TAB Calcium Carbonate (Calcium) 600 Mg Calcium (1500 Mg) Tablet 600 MG PO DAILY, TAB Losartan Potassium (Losartan Potassium) 100 Mg Tablet 100 MG PO DAILY, TAB Metformin HCl (Metformin HCl) 500 Mg Tablet 500 MG PO DAILY, TAB Metoprolol Succinate (Metoprolol Succinate) 200 Mg Tab.er.24h 100 MG PO HS, TAB TAKES OF A (200MG) TABLET Naproxen Sodium (Aleve) 220 Mg Tablet 220 MG PO Q8H PRN for PAIN-MILD (1-4), TAB [place]-3/Dha/Epa/Fish Oil (Fish Oil 1,000 mg Softgel) 1,000 Mg (120 Mg-180 Mg) Capsule 1000 MG PO DAILY, CAP Discontinued Medications: Hydrochlorothiazide (Hydrochlorothiazide) 25 Mg Tablet 25 MG PO DAILY, TAB Patient Instructions Goal/Follow Up Appt: Bette with PCP Dr Donald Saturday/Saturday Patient Instructions: - Keep wound area clean with mild soap and water - Make sure to complete you antibiotics Activity & Diet Discharge Diet: Cardiac Diet Activity as Tolerated: Yes Copy Copies To 1: BRENDA,SHEEBA CHACON MD, MD Jun 13, 2022 11:22
[2022-06-13 12:34] VITALS: BP 143/73
--- NOTE | 2022-06-13 14:02 | Discharge Summary ---
CAREN SWANSON 06/13/22 1402: Discharge Summary Hospital Course Was the Problem List Reviewed?: Yes Hospital Course Date of Admission: Jun 10, 2022 at 18:26 Admission Diagnosis : Family Physician/Provider: James Donald MD Date of Discharge: 06/13/22 Discharge Diagnosis: Cellulitis of the right upper extremity Hospital Course: Patient is a 87yo M with PMH of A fib, pacemaker, DM2, and htn presenting with right hand swelling. Presented to the ER with swelling and erythema of the right extremity. Patient states that he sustained an unknown injury to his right hand sometime within the past 2 weeks. On 06/07/22 the area around that cut began to swell, became red, and was tender to touch. The swelling became progressively worse and started to travel up the posterior side of his right hand. On Saturday he noticed his right inner elbow was swollen and red with red streaking from his elbow toward his shoulder. Patient denies any injury around his elbow. Patient was concerned the infection from his arm was spreading so he came to the emergency room. Patient had an elevated WBC, CRP, and D-dimer in the ER. He was admitted for cellulitis of right upper extremity. At the beginning of his stay, he had restricted movement in his right hand due to the swelling. He was treated with IV Abx (vancomycin and zosyn). Ultrasound of the right upper extremity was performed due to his elevated D-dimer to rule out a thrombophlebitis and there was no thrombi seen. Today the patient's right arm was less swollen and had better ROM. His WBC has trended down form 19.8 to 9.8. He was agreeable with being discharged home. Wound care was consulted to put a dressing on his right antecubital area. He was sent home with cefdinir to take for 6 days. Labs and Pending Lab Test: Laboratory Tests 06/12/22 16:03: Glucometer 232H 06/12/22 20:10: Glucometer 233H 06/13/22 05:05: Glucometer 125H 06/13/22 05:06: White Blood Count 9.8, Red Blood Count 3.81L, Hemoglobin 11.6L, Hematocrit 35L, Mean Corpuscular Volume 91, Mean Corpuscular Hemoglobin 30, Mean Corpuscular Hemoglobin Concent 34, Red Cell Distribution Width 13.6, Platelet Count 208, Mean Platelet Volume 10.4, Immature Granulocyte % (Auto) 1, Neutrophils (%) (Auto) 74, Lymphocytes (%) (Auto) 15, Monocytes (%) (Auto) 7, Eosinophils (%) (Auto) 3, Basophils (%) (Auto) 1, Neutrophils # (Auto) 7.3, Lymphocytes # (Auto) 1.4, Monocytes # (Auto) 0.7, Eosinophils # (Auto) 0.3, Basophils # (Auto) 0.1, Immature Granulocyte # (Auto) 0.1, Sodium Level 139, Potassium Level 3.4L, Chloride Level 108H, Carbon Dioxide Level 20L, Anion Gap 11, Blood Urea Nitrogen 12, Creatinine 0.92, Estimat Glomerular Filtration Rate 81, BUN/Creatinine Ratio 13, Glucose Level 121H, Calcium Level 7.7L, Corrected Calcium 8.5, Total Bilirubin 0.8, Aspartate Amino Transf (AST/SGOT) 54H, Alanine Aminotransferase (ALT/SGPT) 40, Alkaline Phosphatase 74, Total Protein 6.0L, Albumin 3.0L 06/13/22 11:09: Glucometer 176H Microbiology 06/10/22 Blood Culture - Preliminary, Resulted No growth 06/10/22 Gram Stain - Final, Resulted 06/10/22 Wound Culture - Preliminary, Resulted Streptococcus pyogenes Grp A Home Meds Active Cephalexin 500 Mg Tablet 500 Mg PO TID 6 Days Reported Fish Oil 1,000 mg Softgel ([place]-3/Dha/Epa/Fish Oil) 1,000 Mg (120 Mg-180 Mg) Capsule 1,000 Mg PO DAILY Calcium (Calcium Carbonate) 600 Mg Calcium (1500 Mg) Tablet 600 Mg PO DAILY Atorvastatin Calcium 10 Mg Tablet 10 Mg PO Q48H Amlodipine Besylate 5 Mg Tablet 5 Mg PO DAILY Metformin HCl 500 Mg Tablet 500 Mg PO DAILY Eliquis (Apixaban) 5 Mg Tablet 5 Mg PO BID Losartan Potassium 100 Mg Tablet 100 Mg PO DAILY Metoprolol Succinate 200 Mg Tab.er.24h 100 Mg PO HS TAKES OF A (200MG) TABLET Aspirin EC (Aspirin) 81 Mg Tablet.dr 81 Mg PO HS Aleve (Naproxen Sodium) 220 Mg Tablet 220 Mg PO Q8H PRN Assessment/Pt Instructions Patient is 87yoM with PMH of A fib, pacemaker, DM2, and htn who presented with cellulitis of the right upper extremity. Patient was treated with IV antibiotics which helped to reduce some of the patient's swelling. Patient discharged home with cefdinir 300mg BID for 6 days. Patient instructed to only use soap and water to clean the area. Patient should return to be reassessed if he develops fever, worsening pain, increased swelling, or streaking that travels up the arm. Discharge Planning: >30 minutes discharge planning Discharge Instructions Discharge Diet: No Restrictions, Cardiac Diet Activity as Tolerated: Yes Consultations General surgery Discharge Physical Examination Vital Signs Vital Signs Date Time Temp Pulse Resp B/P (MAP) Pulse Ox O2 Delivery O2 Flow Rate FiO2 06/13/22 12:47 62 06/13/22 12:34 36.2 18 143/73 (96) 96 Room Air 06/11/22 07:25 0.00 06/10/22 20:32 21 General Appearance: No Apparent Distress, WD/WN HEENT: Pharynx Normal Respiratory: Lungs Clear, Normal Breath Sounds, No Accessory Muscle Use, No Respiratory Distress Cardiovascular: Regular Rate, Rhythm, No Murmur Gastrointestinal: Non Tender, Soft Extremity: No Calf Tenderness, No Pedal Edema, Other (Right hand has improved ROM compared to yesterday with better movement in the MCP, PIP, and DIP joints) Skin: Other (swelling and erythema of the right 2nd digit and posterior hand, erythema and blisters on the right antecubital area) Neurologic/Psychiatric: Alert, Oriented x3, Normal Mood/Affect Allergies: Coded Allergies: No Known Drug Allergies (Unverified , 05/08/19) Discharge Summary Date of Admission Jun 10, 2022 at 18:26 Date of Discharge Discharge Date: Jun 13, 2022 Discharge Time: 14:51 Admission Diagnosis Cellulitis of right upper extremity Consults/Procedures Consulations General surgery Discharge Diagnosis Cellulitis of right upper extremity SHEEBA YANEZ MD 06/13/22 1756: Discharge Summary Discharge Physical Examination Allergies: Coded Allergies: No Known Drug Allergies (Unverified , 05/08/19) Supervisory-Addendum Brief Supervisory Addendum Verification and Attestation of Medical Student E/M Service A medical student performed and documented this service in my presence. I reviewed and verified all information documented by the medical student and made modifications to such information, when appropriate. I personally performed the physical exam and medical decision making. Yamila Hallmanb 15, 2023,17:56 CAREN SWANSON Jun 13, 2022 14:02 SHEEBA YANEZ MD Jun 13, 2022 17:56
[2022-06-13 15:27] VITALS: BP 143/73
== END 2022-06-13 14:18 | disposition home or self-care (01) | DRG 603 ==
LOC: EDUNIT# 12:56 → ER FS 12:57 → 4TH 18:26
PROVIDERS: ADMIT Internal Medicine; ATTEND Family Medicine
DX: L03.113 Cellulitis of right upper limb (principal); I48.91 Unspecified atrial fibrillation; Z95.0 Presence of cardiac pacemaker; I10 Essential (primary) hypertension; E87.6 Hypokalemia; Z79.82 Long term (current) use of aspirin; Z79.84 Long term (current) use of oral hypoglycemic drugs; Z79.899 Other long term (current) drug therapy; Z79.01 Long term (current) use of anticoagulants; E11.65 Type 2 diabetes mellitus with hyperglycemia; D72.829 Elevated white blood cell count, unspecified
CPT/HCPCS: 36415; 80053; 82947; 83605; 85007; 85025; 85027; 85379; 85610; 85652; 85730; 86141; 87040; 87070; 87205; 94760